=== PATIENT | female | born 1990 | race Hispanic/Latino ===

== ENCOUNTER 2020-06-07 00:18 | Emergency (ER) | payer OTHER ==
--- NOTE | 2020-06-07 00:50 | ER ---
Nurse's Notes [facility] Name: Thomas Nguyen Age: 30 yrs Sex: Female : 1990 Arrival Date: 06/07/2020 Time: 00:22 Bed Waiting Private MD: Diagnosis: Dysmenorrhea, unspecified Presentation: 06/07 00:37 Chief complaint: Patient states: Reports having bad cramps with the last couple lp1 menstrual cycles; states feeling contraction-like pain, pain to lower back radiating to pelvic area; States not all menstrual cycles are painful like this; states taking Ibuprofen for relief with no improvement. Coronavirus screen: Client denies travel out of the [place] in the last 14 days. At this time, the client does not indicate any symptoms associated with coronavirus-19. Ebola Screen: No symptoms or risks identified at this time. Risk Assessment: Do you want to hurt yourself or someone else? Patient reports no desire to harm self or others. Onset of symptoms was June 07, 2020. 00:37 Method Of Arrival: Ambulatory lp1 00:37 Acuity: CRISTY 3 lp1 00:43 Initial Sepsis Screen: Does the patient meet any 2 criteria? No. Patient's initial lp1 sepsis screen is negative. Does the patient have a suspected source of infection? No. Patient's initial sepsis screen is negative. 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 - Social history:: Smoking status: Patient denies any tobacco usage or history of. Screenin:41 Abuse screen: Denies threats or abuse. Denies injuries from another. Nutritional lp1 screening: No deficits noted. Tuberculosis screening: No symptoms or risk factors identified. Fall Risk None identified. Assessment: 00:46 Reassessment: Dr. Pineda in triage to assess patient. lp1 00:55 General: Appears in no apparent distress. Behavior is appropriate for age. Pain: lp1 Complains of pain in suprapubic area Pain currently is 7 out of 10 on a pain scale. Quality of pain is described as sharp. Neuro: Level of Consciousness is awake, alert, obeys commands, Oriented to person, place, time, situation. Cardiovascular: Patient's skin is warm and dry. Respiratory: Respiratory effort is even, unlabored. GI: Abdomen is non-distended, Bowel sounds present X 4 quads. Abd is soft and non tender X 4 quads. : Reports vaginal bleeding that is with clots, reports normal for menses. EENT: No signs and/or symptoms were reported regarding the EENT system. Derm: Skin is pink, warm \T\ dry. Musculoskeletal: No deficits noted. 01:15 Reassessment: Patient aware of need for ride for discharge, demonstrates understanding. lp1 01:44 Reassessment: Patient left prior to medication administration and discharge papers lp1 given. Vital Signs: 00:43 BP 124 / 67; Pulse 68; Resp 16; Temp 97.8(A); Pulse Ox 100% on R/A; Weight 77.11 kg lp1 (R); Height 5 ft. 7 in. (170.18 cm); Pain 7/10; 00:43 Body Mass Index 26.63 (77.11 kg, 170.18 cm) lp1 ED Course: 00:22 Patient arrived in ED. ag3 00:39 Triage completed. lp1 00:39 Arm band placed on left wrist. lp1 00:46 Patient has correct armband on for positive identification. lp1 00:49 Virgilio Pineda MD is Attending Physician. tw4 00:54 Cecilia Kebede, RN is Primary Nurse. lp1 00:58 No provider procedures requiring assistance completed. Patient did not have IV access lp1 during this emergency room visit. Administered Medications: 06:37 Not Given (Patient left prior to administration): Tylenol #3 (300 mg-30 mg) 2 tabs PO lp1 once; RASS on ADMIN: Combtv4, Very Agttd3, Agttd2, Rstlss1, AlertClm0, Drwsy-1, Lt Sdtn-2, Mod Sdtn-3, Dp Sdtn-4, UnArsble-5 Outcome: 00:50 Discharge ordered by . tw4 01:46 Discharged to Prior to given discharge instructions and prescription lp1 01:46 Condition: stable 01:47 Patient left the ED. lp1 Signatures: Cecilia Kebede RN RN lp1 Virgilio Pineda MD MD tw4 Sagrario Johns ag3 Corrections: (The following items were deleted from the chart) 00:41 00:37 Chief complaint: Patient states: Reports having bad cramps with the last couple lp1 menstrual cycles; states feeling contraction-like pain, pain to lower back radiating to pelvic area; States not all menstrual cycles are painful like this lp1
--- NOTE | 2020-06-07 00:50 | EDPHYS ---
Physician Documentation [facility] Name: Thomas Nguyen Age: 30 yrs Sex: Female : 1990 Arrival Date: 06/07/2020 Time: 00:22 Bed Waiting Private MD: ED Physician Virgilio Pineda HPI: 06/07 00:52 This 30 yrs old Female presents to ER via Ambulatory with complaints of tw4 Abdominal Pain. 00:52 The patient presents with vaginal bleeding that is moderate. The patient presents with tw4 pelvic pain, that is located in/on the suprapubic area, the pain radiates to the lumbar area, left low back and right low back. Onset: The symptoms/episode began/occurred today. Onset: The symptoms/episode began/occurred pt has been having worsening menstrual cramping over the last few months. Modifying factors: The symptoms are alleviated by nothing, the symptoms are aggravated by nothing. Associated signs and symptoms: The patient has no apparent associated signs or symptoms. Severity of symptoms: At their worst the symptoms were moderate, in the emergency department the symptoms are unchanged. The patient has experienced similar episodes in the past, chronically, but today's symptoms are worse. 00:56 Pt states that she called EMS because of increased pelvic pain secondary to menstrual tw4 cramps. 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 - Social history:: Smoking status: Patient denies any tobacco usage or history of. ROS: 00:52 Positive for pelvic pain, vaginal bleeding, Negative for injury or acute deformity, tw4 urinary symptoms, flank pain, burning with urination, difficulty urinating, bladder incontinence. 00:52 Constitutional: Negative for fever, chills, and weight loss, Eyes: Negative for injury, pain, redness, and discharge, Cardiovascular: Negative for chest pain, palpitations, and edema, Respiratory: Negative for shortness of breath, cough, wheezing, and pleuritic chest pain, Abdomen/GI: Negative for abdominal pain, nausea, vomiting, diarrhea, and constipation, Back: Negative for injury and pain, MS/Extremity: Negative for injury and deformity, Skin: Negative for injury, rash, and discoloration. Exam: 00:52 Constitutional: This is a well developed, well nourished patient who is awake, alert, tw4 and in no acute distress. Head/Face: Normocephalic, atraumatic. Chest/axilla: Normal chest wall appearance and motion. Nontender with no deformity. No lesions are appreciated. Cardiovascular: Regular rate and rhythm with a normal S1 and S2. No gallops, murmurs, or rubs. Normal PMI, no JVD. No pulse deficits. Respiratory: Lungs have equal breath sounds bilaterally, clear to auscultation and percussion. No rales, rhonchi or wheezes noted. No increased work of breathing, no retractions or nasal flaring. 00:52 Back: No spinal tenderness. No costovertebral tenderness. Full range of motion. Skin: Warm, dry with normal turgor. Normal color with no rashes, no lesions, and no evidence of cellulitis. MS/ Extremity: Pulses equal, no cyanosis. Neurovascular intact. Full, normal range of motion. 00:52 Abdomen/GI: Inspection: abdomen appears normal, Bowel sounds: normal, Palpation: moderate abdominal tenderness. Vital Signs: 00:43 BP 124 / 67; Pulse 68; Resp 16; Temp 97.8(A); Pulse Ox 100% on R/A; Weight 77.11 kg lp1 (R); Height 5 ft. 7 in. (170.18 cm); Pain 7/10; 00:43 Body Mass Index 26.63 (77.11 kg, 170.18 cm) lp1 MDM: 00:50 Patient medically screened. tw4 00:52 Differential diagnosis: dysmenorrhea, menometrorrhagia, menorrhea. Data reviewed: vital tw4 signs, nurses notes. Data interpreted: Pulse oximetry: Interpretation: normal. Counseling: I had a detailed discussion with the patient and/or guardian regarding: the historical points, exam findings, and any diagnostic results supporting the discharge/admit diagnosis. Special discussion: Based on the patient's Hx, exam, and Dx evaluation, there is no indication for emergent surgery or inpatient Tx. It is understood by the patient/guardian that if the Sx's persist or worsen they need to return immediately for re-evaluation. I discussed with the patient/guardian in detail that at this point there is no indication for admission to the hospital. It is understood, however, that if the symptoms persist or worsen the patient needs to return immediately for re-evaluation. Administered Medications: 06:37 Not Given (Patient left prior to administration): Tylenol #3 (300 mg-30 mg) 2 tabs PO lp1 once; RASS on ADMIN: Combtv4, Very Agttd3, Agttd2, Rstlss1, AlertClm0, Drwsy-1, Lt Sdtn-2, Mod Sdtn-3, Dp Sdtn-4, UnArsble-5 Disposition: 06/07/20 00:50 Discharged to Home. Impression: Dysmenorrhea, unspecified. - Condition is Stable. - Discharge Instructions: Dysmenorrhea, [id number]. - Prescriptions for Tramadol 50 mg Oral Tablet - take 1 tablet by ORAL route every 8 hours as needed; 12 tablet. - Medication Reconciliation Form, Thank You Letter, Antibiotic Education, Prescription Opioid Use form. - Follow up: Private Physician; When: Upon discharge from the Emergency Department; Reason: Recheck today's complaints, Continuance of care, Re-evaluation by your physician. - Problem is an ongoing problem. - Symptoms are unchanged. Signatures: Cecilia Kebede RN RN lp1 Virgilio Pineda MD MD tw4 Corrections: (The following items were deleted from the chart) 01:47 00:50 06/07/2020 00:50 Discharged to Home. Impression: Dysmenorrhea, unspecified. lp1 Condition is Stable. Forms are Medication Reconciliation Form, Thank You Letter, Antibiotic Education, Prescription Opioid Use. Follow up: Private Physician; When: Upon discharge from the Emergency Department; Reason: Recheck today's complaints, Continuance of care, Re-evaluation by your physician. Problem is an ongoing problem. Symptoms are unchanged. tw4
[2020-06-07 01:55] VITALS: BP 124/67; TEMP 97.8; O2SAT 100
[2020-06-07] MEDS ORDERED: CODEINE 30MG/APAP 300MG TAB ONE (01:56)
== END 2020-06-07 01:47 | disposition home or self-care (01) ==
LOC: ER 00:18
DX: N94.6 Dysmenorrhea, unspecified (principal)
CPT/HCPCS: 99281

== ENCOUNTER 2020-10-02 16:24 | Emergency (ER) | payer OTHER ==
--- OUTSIDE RECORDS SUMMARY | 2020-10-02 16:26 | XMS REPORT | Continuity of Care Document ---
:1990 Author Organization [facility] Address [address] [place] [address] Dr. Perdomo [address] [place] [id number] Care Team Providers Name Role Phone Unavailable Unavailable Unavailable Problems This patient has no known problems. Allergies, Adverse Reactions, Alerts This patient has no known allergies or adverse reactions. Medications This patient has no known medications. Procedures This patient has no known procedures. Results This patient has no known results.
[2020-10-02 17:57] LABS: Absolute Lymphocytes (CBC) 2.9 K/uL (0.7-4.9); Basophils % 0.4 % (0-1.3); Hematocrit 39.7 % (36.0-45.0); Lymphocytes % 30.1 % (15.3-44.8); RBC Red Blood Cell Count 4.98 M/uL (3.86-4.86)
[2020-10-02 18:13] LABS: Protime INR 1.02
[2020-10-02 18:24] LABS: ALT/SGPT 23 U/L (12-78); AST/SGOT 16 U/L (15-37); Albumin 4.3 g/dL (3.4-5.0); Alkaline Phosphatase 84 U/L (45-117); BUN Blood Urea Nitrogen 17 mg/dL (7-18); Bicarbonate 27 mmol/L (21-32); Bilirubin Direct < 0.1 mg/dL (0-0.2); Bilirubin Total 0.3 mg/dL (0.2-1.0); Glucose Level 90 mg/dL (74-106); Potassium 3.2 mmol/L (3.5-5.1); Protein, Total 8.7 g/dL (6.4-8.2); Sodium Level 142 mmol/L (136-145)
--- NOTE | 2020-10-02 18:57 | ER ---
Nurse's Notes [facility] Name: Thomas Nguyen Age: 30 yrs Sex: Female : 1990 Arrival Date: 10/02/2020 Time: 16:36 Bed 19 Private MD: Diagnosis: Person with feared health complaint in whom no diagnosis is made Presentation: 10/02 16:26 Chief complaint: EMS states: Family called saying that the pt. wanted to kill herself rb3 and may have possible taken drugs. PT. is A \T\ O x 4, denies wanting to hurt herself or anyone else and denies using drugs. Pt. reports that she does take Adderall for ADHD. Vital signs are stable. 16:26 Coronavirus screen: At this time, the client does not indicate any symptoms associated rb3 with coronavirus-19. Ebola Screen: Patient denies travel to an Ebola-affected area in the 21 days before illness onset. Initial Sepsis Screen: Does the patient meet any 2 criteria? No. Patient's initial sepsis screen is negative. Does the patient have a suspected source of infection? No. Patient's initial sepsis screen is negative. Risk Assessment: Do you want to hurt yourself or someone else? Patient reports no desire to harm self or others. Onset of symptoms was October 02, 2020. 16:26 Method Of Arrival: EMS: [facility] rb3 16:26 Acuity: CRISTY 3 rb3 Triage Assessment: 16:26 General: Appears in no apparent distress. comfortable, Behavior is calm, cooperative. rb3 Neuro: Level of Consciousness is awake, alert, obeys commands, Oriented to person, place, time, situation. Cardiovascular: Patient's skin is warm and dry. Respiratory: Airway is patent Respiratory effort is even, unlabored, Respiratory pattern is regular, symmetrical. GI: No signs and/or symptoms were reported involving the gastrointestinal system. : No signs and/or symptoms were reported regarding the genitourinary system. 16:26 Pain: Denies pain. 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 - Social history:: Smoking status: Patient reports the use of cigarette tobacco products, denies chronic smoking, but will smoke occasionally. Screenin:26 Abuse screen: Denies threats or abuse. Nutritional screening: No deficits noted. rb3 Tuberculosis screening: No symptoms or risk factors identified. Fall Risk None identified. Assessment: 16:26 General: See triage assessment. rb3 17:25 Reassessment: Patient appears in no apparent distress at this time. No changes from rb3 previously documented assessment. 18:22 Reassessment: Patient appears in no apparent distress at this time. Patient and/or rb3 family updated on plan of care and expected duration. Pain level reassessed. Patient is alert, oriented x 3, equal unlabored respirations, skin warm/dry/pink. Vital Signs: 16:26 BP 136 / 101; Pulse 75; Resp 20; Temp 97.5; Pulse Ox 99% ; Weight 77.11 kg (R); Height rb3 5 ft. 7 in. (170.18 cm) (R); 17:30 BP 153 / 88; Pulse 63; Resp 17; Pulse Ox 98% on R/A; rb3 18:26 BP 131 / 93; Pulse 64; Resp 16; Pulse Ox 100% on R/A; rb3 16:26 Body Mass Index 26.63 (77.11 kg, 170.18 cm) rb3 16:26 Pt. was on the telephone talking during vitals rb3 ED Course: 16:26 Arm band placed on right wrist. rb3 16:26 Patient has correct armband on for positive identification. Bed in low position. Call rb3 light in reach. Side rails up X 1. Pulse ox on. NIBP on. 16:36 Patient arrived in ED. rb3 16:49 Triage completed. rb3 16:50 Stella Fischer FNP-C is [facility]. kb 16:50 Hernán Thacker MD is Attending Physician. kb 18:21 Keyla Vilchis, VANIA is Primary Nurse. rb3 19:06 IV discontinued, intact, bleeding controlled, No redness/swelling at site. Pressure iw dressing applied. 19:06 No provider procedures requiring assistance completed. iw Administered Medications: No medications were administered Outcome: 18:56 Discharge ordered by . isadora 19:06 Discharged to home ambulatory, with family. iw 19:06 Condition: good 19:06 Discharge instructions given to patient, family, Instructed on discharge instructions, follow up and referral plans. Demonstrated understanding of instructions, follow-up care. 19:06 Patient left the ED. iw Signatures: Stella Fischer, GREIGE GOODS INSPECTOR-C IZA-Prachi Florentino, RN RN iw Keyla Vilchis, RN RN rb3
--- NOTE | 2020-10-02 18:57 | EDPHYS ---
Physician Documentation [facility] Name: Thomas Nguyen Age: 30 yrs Sex: Female : 1990 Arrival Date: 10/02/2020 Time: 16:36 Bed 19 Private MD: ED Physician Hernán Thacker HPI: 10/02 18:41 This 30 yrs old Female presents to ER via EMS with complaints of family wanted kb pt to get a mental exam. 18:41 The patient has not experienced similar symptoms in the past. The patient has not kb recently seen a physician. Pt states her family believes she is abusing her prescribed medication and doing drugs so they wanted her to get a mental health evaluation. States she is just doing what they want because it is easier that way. States she had a problem in the past with drugs, but dealt with all of that in the past. Pt denies homicidal and suicidal ideations. . 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 - Social history:: Smoking status: Patient reports the use of cigarette tobacco products, denies chronic smoking, but will smoke occasionally. ROS: 18:39 Constitutional: Negative for fever, chills, and weight loss, Cardiovascular: Negative kb for chest pain, palpitations, and edema, Respiratory: Negative for shortness of breath, cough, wheezing, and pleuritic chest pain, Abdomen/GI: Negative for abdominal pain, nausea, vomiting, diarrhea, and constipation, MS/Extremity: Negative for injury and deformity, Skin: Negative for injury, rash, and discoloration, Neuro: Negative for headache, weakness, numbness, tingling, and seizure. Exam: 18:39 Constitutional: This is a well developed, well nourished patient who is awake, alert, kb and in no acute distress. Head/Face: Normocephalic, atraumatic. Chest/axilla: Normal chest wall appearance and motion. Cardiovascular: Regular rate and rhythm with a normal S1 and S2. No gallops, murmurs, or rubs. No pulse deficits. Respiratory: Lungs have equal breath sounds bilaterally, clear to auscultation. No rales, rhonchi or wheezes noted. No increased work of breathing, no retractions or nasal flaring. Abdomen/GI: Soft, non-tender, with normal bowel sounds. No distension. No guarding or rebound. No evidence of tenderness throughout. Skin: Warm, dry with normal turgor. Normal color with no rashes, no lesions, and no evidence of cellulitis. MS/ Extremity: Pulses equal, no cyanosis. Neurovascular intact. Full, normal range of motion. Neuro: Awake and alert, GCS 15, oriented to person, place, time, and situation. Cranial nerves II-XII grossly intact. Moves all extremities. Sensory grossly intact. Cerebellar exam normal. Normal gait. 18:40 Psych: Behavior/mood is pleasant, cooperative, Affect is calm, Oriented to person, kb place, time, Patient has no thoughts/intents to harm self or others. Judgement / Insight is normal. Memory is normal. Delusions/hallucinations are not present. Vital Signs: 16:26 BP 136 / 101; Pulse 75; Resp 20; Temp 97.5; Pulse Ox 99% ; Weight 77.11 kg (R); Height rb3 5 ft. 7 in. (170.18 cm) (R); 17:30 BP 153 / 88; Pulse 63; Resp 17; Pulse Ox 98% on R/A; rb3 18:26 BP 131 / 93; Pulse 64; Resp 16; Pulse Ox 100% on R/A; rb3 16:26 Body Mass Index 26.63 (77.11 kg, 170.18 cm) rb3 16:26 Pt. was on the telephone talking during vitals rb3 MDM: 16:50 Patient medically screened. kb 18:40 Data reviewed: vital signs, nurses notes. Data interpreted: Pulse oximetry: on room air kb is 100 %. Interpretation: normal. Counseling: I had a detailed discussion with the patient and/or guardian regarding: the historical points, exam findings, and any diagnostic results supporting the discharge/admit diagnosis, lab results, the need for outpatient follow up, a family practitioner, to return to the emergency department if symptoms worsen or persist or if there are any questions or concerns that arise at home. 18:56 ED course: Pt continues to deny homicidal or suicidal ideations. Pt will call [facility] on Sunday for follow up. 10/02 16:50 Order name: Acetaminophen 10/02 16:50 Order name: Basic Metabolic Panel 10/02 16:50 Order name: CBC with Diff 10/02 16:50 Order name: ETOH Level 10/02 16:50 Order name: Hepatic Function 10/02 16:50 Order name: PT-INR; Complete Time: 18:25 kb 10/02 16:50 Order name: Ptt, Activated; Complete Time: 18:25 kb 10/02 16:50 Order name: Salicylate; Complete Time: 18:25 kb 10/02 16:51 Order name: Acetaminophen Level; Complete Time: 18:31 EDMS 10/02 16:51 Order name: Basic Metabolic Panel; Complete Time: 18:31 EDMS 10/02 16:51 Order name: CBC with Automated Diff; Complete Time: 18:25 EDMS 10/02 16:52 Order name: Alcohol Serum/Plasma; Complete Time: 18:25 EDMS 10/02 16:52 Order name: Liver (Hepatic) Function; Complete Time: 18:31 EDMS 10/02 16:50 Order name: EKG; Complete Time: 16:52 kb 10/02 16:50 Order name: EKG - Nurse/Tech 10/02 16:50 Order name: IV Saline Lock; Complete Time: 18:24 kb 10/02 16:50 Order name: Labs collected and sent; Complete Time: 18:24 kb Administered Medications: No medications were administered Disposition: 10/03 09:05 Co-signature as Attending Physician, Hernán Thacker MD I agree with the assessment and nimo plan of care. Disposition: 10/02/20 18:56 Discharged to Home. Impression: Person with feared health complaint in whom no diagnosis is made. - Condition is Stable. - Medication Reconciliation Form, Thank You Letter, Antibiotic Education, Prescription Opioid Use form. - Follow up: Emergency Department; When: As needed; Reason: Worsening of condition. Follow up: Private Physician; When: 2 - 3 days; Reason: Recheck today's complaints, Continuance of care, Re-evaluation by your physician. Signatures: Dispatcher [employer] Stella Askew FNP-C FNP-Ckb Anderson, Corey, MD MD nimo Ilya, Prachi, RN RN iw Keyla Vilchis, RN RN rb3 Corrections: (The following items were deleted from the chart) 10/02 19:06 18:56 10/02/2020 18:56 Discharged to Home. Impression: Person with feared health iw complaint in whom no diagnosis is made. Condition is Stable. Forms are Medication Reconciliation Form, Thank You Letter, Antibiotic Education, Prescription Opioid Use. Follow up: Emergency Department; When: As needed; Reason: Worsening of condition. Follow up: Private Physician; When: 2 - 3 days; Reason: Recheck today's complaints, Continuance of care, Re-evaluation by your physician. kb
[2020-10-02 19:12] VITALS: TEMP 97.5
[2020-10-02 19:21] VITALS: BP 131/93; O2SAT 100
== END 2020-10-02 19:06 | disposition home or self-care (01) ==
LOC: ER 16:24
DX: Z71.1 Person with feared health complaint in whom no diagnosis is made (principal); F90.9 Attention-deficit hyperactivity disorder, unspecified type; F17.210 Nicotine dependence, cigarettes, uncomplicated
CPT/HCPCS: 36415; 80048; 80076; 80320; 80329; 85025; 85610; 85730; 99283

== ENCOUNTER 2021-08-29 14:59 | Emergency (ER) | payer OTHER ==
--- OUTSIDE RECORDS SUMMARY | 2021-08-29 15:01 | XMS REPORT | Continuity of Care Document ---
:1990 Author Organization [facility] Address [address]dom[address] [place] [address] Care Team Providers Name Role Phone UNKNOWN Attending Clinician Unavailable Payers Payer Name Policy Type Policy Number Effective Date Expiration Date [facility] [id number] 2015 00:00:00 Problems This patient has no known problems. Allergies, Adverse Reactions, Alerts Allergy Allergy Status Severity Reaction(s) Onset Inactive Treating Comm ents Source Name Type Date Date Clinician NO KNOWN Drug Active [facility] Medications This patient has no known medications. Procedures This patient has no known procedures. Encounters Start End Encounter Admission Attending Care Care Encounter Source Date/Time Date/Time Type Type Clinicians Facility Department ID 2020-07-07 2020-07-07 Outpatient R UNKNOWN, [facility] [id number] [employer] 15:20:00 15:20:00 ATTENDING [facility] Results This patient has no known results.
[2021-08-29 17:17] LABS: SARS-COV-2 RT PCR POSITIVE (NEGATIVE)
--- NOTE | 2021-08-29 17:18 | ER ---
Nurse's Notes [facility] Name: Thomas Nguyen Age: 31 yrs Sex: Female : 1990 Arrival Date: 08/29/2021 Time: 15:01 Bed 9 Private MD: Diagnosis: Coronavirus infection, unspecified Presentation: 08/29 15:47 Chief complaint: Patient states: pt states that she was exposed to covid last week and jh6 that she has been having sob x 2-3wks. Coronavirus screen: Client denies travel out of the [place] in the last 14 days. Ebola Screen: Patient denies travel to an Ebola-affected area in the 21 days before illness onset. Initial Sepsis Screen: Does the patient meet any 2 criteria? No. Patient's initial sepsis screen is negative. Does the patient have a suspected source of infection? No. Patient's initial sepsis screen is negative. Risk Assessment: Do you want to hurt yourself or someone else? Patient reports no desire to harm self or others. 15:47 Method Of Arrival: Ambulatory [facility] 15:47 Acuity: CRISTY 4 [facility] Triage Assessment: 15:50 General: Appears in no apparent distress. Pain: Denies pain. Cardiovascular: No [facility] deficits noted. 17:23 General: Behavior is calm, cooperative, appropriate for age. Neuro: Level of ld1 Consciousness is awake, alert, obeys commands, Oriented to person, place, time, situation. Respiratory: Airway is patent Respiratory effort is even, unlabored, Respiratory pattern is regular, symmetrical. 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 - Social history:: Smoking status: Patient reports the use of cigarette tobacco products. Screenin:22 Abuse screen: Denies threats or abuse. Denies injuries from another. Nutritional ld1 screening: No deficits noted. Tuberculosis screening: No symptoms or risk factors identified. Fall Risk None identified. Vital Signs: 15:47 BP 145 / 82; Pulse 84; Resp 20; Temp 98.4; Pulse Ox 100% ; Weight 83.46 kg; Height 5 [facility] ft. 4 in. (162.56 cm); Pain 0/10; 15:47 Body Mass Index 31.58 (83.46 kg, 162.56 cm) [facility] ED Course: 15:01 Patient arrived in ED. as 15:49 Triage completed. [facility] 15:50 Stella Fischer FNP-C is [facility]. kb 15:50 Catrachito Ordaz MD is Attending Physician. kb 16:09 COVID-19/FLU A+B (Document "Date of Onset" if Symptomatic) Sent. [facility] 16:09 COVID swab sent to lab. [facility] 17:22 No provider procedures requiring assistance completed. Patient did not have IV access ld1 during this emergency room visit. Patient maintains SpO2 saturation greater than 95% on room air. 17:22 Patient has correct armband on for positive identification. classroom monitor on. Pulse ld1 ox on. NIBP on. Door closed. Noise minimized. Warm blanket given. 17:23 Arm band placed on right wrist. ld1 Administered Medications: No medications were administered Outcome: 15:25 Patient left the ED. [facility] 17:18 Discharge ordered by . kb 17:22 Discharged to home ambulatory. ld1 17:22 Condition: stable 17:22 Discharge instructions given to patient, Instructed on discharge instructions, follow up and referral plans. Demonstrated understanding of instructions, follow-up care. 17:23 Patient left the ED. ld1 Signatures: Stella Fischer FNP-C FNP-Ckb Martinez, Amelia as Martinez, Maria [facility] Marilee Gorman RN RN 1 Lauren Smith RN RN [facility]
--- NOTE | 2021-08-29 17:19 | EDPHYS ---
Physician Documentation [facility] Name: Thomas Nguyen Age: 31 yrs Sex: Female : 1990 Arrival Date: 08/29/2021 Time: 15:01 Bed 9 Private MD: ED Physician Catrachito Ordaz HPI: 08/29 15:58 This 31 yrs old Female presents to ER via Ambulatory with complaints of Chest kb Pain, Shortness Of Breath. 15:58 The patient or guardian reports cough, that is intermittent, difficulty breathing. kb Onset: The symptoms/episode began/occurred 2 week(s) ago, and became worse 3 day(s) ago. Severity of symptoms: At their worst the symptoms were moderate, in the emergency department the symptoms are unchanged. Modifying factors: The symptoms are alleviated by nothing, the symptoms are aggravated by nothing. Associated signs and symptoms: Pertinent positives: chest pain, Pertinent negatives: diarrhea, ear ache, fever, nausea, rhinorrhea, sore throat, vomiting. The patient has not experienced similar symptoms in the past. The patient has not recently seen a physician. 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 - Social history:: Smoking status: Patient reports the use of cigarette tobacco products. ROS: 15:57 Constitutional: Negative for fever, chills, and weight loss. kb 15:57 Cardiovascular: Positive for chest pain, Negative for edema, orthopnea, palpitations, paroxysmal nocturnal dyspnea. 15:57 Respiratory: Positive for cough, shortness of breath, Negative for dyspnea on exertion, hemoptysis, orthopnea, pleurisy, sputum production, wheezing. 15:57 All other systems are negative. Exam: 15:57 Constitutional: This is a well developed, well nourished patient who is awake, alert, kb and in no acute distress. Head/Face: Normocephalic, atraumatic. ENT: Moist Mucous membranes Cardiovascular: Regular rate and rhythm with a normal S1 and S2. No gallops, murmurs, or rubs. No pulse deficits. Respiratory: Respirations even and unlabored. No increased work of breathing. Talking in full sentences Skin: Warm, dry with normal turgor. Normal color. MS/ Extremity: Pulses equal, no cyanosis. Neurovascular intact. Full, normal range of motion. Neuro: Awake and alert, GCS 15, oriented to person, place, time, and situation. Moves all extremities. Normal gait. Psych: Awake, alert, with orientation to person, place and time. Behavior, mood, and affect are within normal limits. Vital Signs: 15:47 BP 145 / 82; Pulse 84; Resp 20; Temp 98.4; Pulse Ox 100% ; Weight 83.46 kg; Height 5 jh6 ft. 4 in. (162.56 cm); Pain 0/10; 15:47 Body Mass Index 31.58 (83.46 kg, 162.56 cm) jh6 MDM: 15:50 Patient medically screened. kb 15:57 Data reviewed: vital signs, nurses notes. Data interpreted: Pulse oximetry: on room air kb is 100 %. Interpretation: normal. 17:17 Counseling: I had a detailed discussion with the patient and/or guardian regarding: the kb historical points, exam findings, and any diagnostic results supporting the discharge/admit diagnosis, lab results, the need for outpatient follow up, a family practitioner, to return to the emergency department if symptoms worsen or persist or if there are any questions or concerns that arise at home. 08/29 15:50 Order name: COVID-19/FLU A+B (Document "Date of Onset" if Symptomatic); Complete Time: kb 17:18 Administered Medications: No medications were administered Disposition: 17:49 Co-signature as Attending Physician, Catrachito Ordaz MD. rn Disposition Summary: 08/29/21 17:18 Discharge Ordered Location: Home kb Condition: Stable kb Diagnosis - Coronavirus infection, unspecified kb Followup: kb - With: Emergency Department - When: As needed - Reason: Worsening of condition Followup: kb - With: Private Physician - When: 2 - 3 days - Reason: Recheck today's complaints, Continuance of care, Re-evaluation by your physician Discharge Instructions: - Discharge Summary Sheet kb - Viral Respiratory Infection, [id number] kb - COVID-19 kb Forms: - Medication Reconciliation Form kb - Thank You Letter kb - Antibiotic Education kb - Prescription Opioid Use kb Signatures: Dispatcher [employer] Stella Askew, VISUAL INSPECTOR-C VISUAL INSPECTOR-Ckb Catrachito Ordaz MD MD rn Hastedt, Jennifer, RN RN 6 Corrections: (The following items were deleted from the chart) 15:25 before being seen by provider [facility] 15:25 unknown [facility]
[2021-08-29 17:38] VITALS: BP 145/82; TEMP 98.4; O2SAT 100
== END 2021-08-29 17:23 | disposition home or self-care (01) ==
LOC: ER 14:59
DX: U07.1 COVID-19 (principal); F90.9 Attention-deficit hyperactivity disorder, unspecified type; F17.210 Nicotine dependence, cigarettes, uncomplicated
CPT/HCPCS: 0240U; 99284

== ENCOUNTER 2022-05-29 15:09 | Emergency (ER) | payer OTHER ==
--- OUTSIDE RECORDS SUMMARY | 2022-05-29 15:13 | XMS REPORT | Continuity of Care Document ---
:1990 Author Organization [facility] t Address [address] [place] [address] Care Team Providers Name Role Phone Vanna Zaidi Primary Care Physician [phone] PMG_GWUC_Porter_F Attending Clinician Unavailable UNKNOWN, ATTENDING Attending Clinician Unavailable Estela Herrmann Attending Clinician PMG_GWUC_Porter_F Admitting Clinician Unavailable Payers Payer Name Policy Type Policy Number Effective Date Expiration Date S ource [employer] [id number] - MOVED [facility] [id number] 2015 00:00:00 Problems Condition Condition Condition Status Onset Resolution Last Treating Co mments Source Name Details Category Date Date Treatment Clinician Date No past No past Problem Resolve 2017-12-10 M emoria history of history of d 12:28:40 l procedure procedure Herm robert (context-d (context-d ependent ependent category) category) Resolved Problem 12/10/2017 [facility] Morbid Morbid Problem Active 2017-12-10 Melchor colmenares obesity obesity 12:28:40 l (disorder) (disorder) Parminder rmrobert Active Problem 12/10/2017 [facility] Group Allergies, Adverse Reactions, Alerts Allergy Allergy Status Severity Reaction(s) Onset Inactive Treating Comm ents Source Name Type Date Date Clinician NO KNOWN Drug Active Univers ALLERGIE Class ity [facility] Social History Social Habit Start Date Stop Date Quantity Comments Source Social History 2017-09-03 2017-09-03 Zee jimenez 16:29:04 16:29:04 Medications Ordered Filled Start Stop Current Ordering Indication Dosage Frequency Signature Comments Components Source Medication Medication Date Date Medication? Clinician (SIG) Name Name MIRTAZAPINE 2022-1 No 15MG TAB 0-01 00:00: 00 trazodone 2022-0 No 51mg 50 mg 4-01 tablet 00:00: 00 Dose 2022-0 No Unknown 4-01 00:00: 00 Wellbutrin 2022-0 No 1mg XL 150 mg 4-01 24 hr 00:00: tablet, 00 extended release Intuniv ER 2022-0 No 1mg 3 mg 4-01 tablet,exte 00:00: nded 00 release Dose 2022-0 No Unknown 3-17 00:00: 00 Intuniv ER 2022-0 No 1mg 3 mg 3-17 tablet,exte 00:00: nded 00 release Wellbutrin 2-0 No 1mg XL 150 mg 3-17 24 hr 00:00: tablet, 00 extended release Dose 2-0 No Unknown 3-17 00:00: 00 Dose 2022-0 No Unknown 3-17 00:00: 00 Dose 2022-0 No Unknown 3-17 00:00: 00 Dose 2022-0 No Unknown 3-17 00:00: 00 Wellbutrin 2-0 No 1mg XL 150 mg 2-16 24 hr 00:00: tablet, 00 extended release Intuniv ER 2-0 No 1mg 3 mg 2-16 tablet,exte 00:00: nded 00 release Dose 2-0 No Unknown 2-16 00:00: 00 ProAir HFA 2-0 No 12mcg/a 90 2-01 ctuatio mcg/actuati 00:00: n on aerosol 00 inhaler Lamictal 25 2-0 No 1mg mg tablet 1-28 00:00: 00 Dose 2022-0 No Unknown 1-28 00:00: 00 Intuniv ER 2-0 No 1mg 2 mg 1-28 tablet,exte 00:00: nded 00 release Intuniv ER 2-0 No 1mg 2 mg 1-28 tablet,exte 00:00: nded 00 release amoxicillin 2020-0 No 1mg 500 mg 3-19 tablet 00:00: 00 amoxicillin 2020-0 No 1mg 500 mg 3-19 tablet 00:00: 00 Cipro 250 2020-0 No 1mg mg tablet 2-04 00:00: 00 metronidazo 2019-0 No 1mg le 500 mg 7-12 tablet 00:00: 00 bupropion No 1mg HCl SR 150 7-08 mg 00:00: tablet,12 00 hr sustained-r elease metronidazo 2017-07 No 1mg le 500 mg 0-01 tablet 00:00: 00 amoxicillin 2017-07 No 1mg 875 0-01 mg-potassiu 00:00: m 00 clavulanate 125 mg tablet nitrofurant No 1mg oin 9-21 monohydrate 00:00: /macrocryst 00 als 100 mg capsule cephalexin No 1mg 500 mg 9-18 capsule 00:00: 00 Immunizations Ordered Immunization Filled Immunization Date Status Commen ts Source Name Name Hep A, adult 2018-04-25 Completed 00:00:00 Hep B, adult 2018-04-25 Completed 00:00:00 Vital Signs Vital Name Observation Time Observation Value Comments Source BP Systolic 2021-09-05 14:03:00 BP Diastolic 2021-09-05 14:03:00 Weight Measured 2021-09-05 14:03:00 185.00 pounds Height Measured 2021-09-05 14:03:00 67.00 inches Body Temperature 2021-09-05 14:03:00 Heart Rate 2021-09-05 14:03:00 Respiratory Rate 2021-09-05 14:03:00 BP Systolic 2021-08-26 08:23:00 144 mm[Hg] BP Diastolic 2021-08-26 08:23:00 89 mm[Hg] Weight Measured 2021-08-26 08:23:00 185.40 pounds Height Measured 2021-08-26 08:23:00 67.25 inches Body Temperature 2021-08-26 08:23:00 98.30 degrees Heart Rate 2021-08-26 08:23:00 90.00 /min Respiratory Rate 2021-08-26 08:23:00 18.00 /min Height Measured 2019-10-16 16:52:00 67.50 inches Body Temperature 2019-10-16 16:52:00 99.30 degrees Heart Rate 2019-10-16 16:52:00 91.00 /min Respiratory Rate 2019-10-16 16:52:00 16.00 /min BP Systolic 2019-10-16 16:52:00 123 mm[Hg] BP Diastolic 2019-10-16 16:52:00 73 mm[Hg] Weight Measured 2019-10-16 16:52:00 190.60 pounds BP Systolic 2019-08-29 17:03:00 129 mm[Hg] BP Diastolic 2019-08-29 17:03:00 78 mm[Hg] Weight Measured 2019-08-29 17:03:00 208.20 pounds Height Measured 2019-08-29 17:03:00 67.50 inches Body Temperature 2019-08-29 17:03:00 98.10 degrees Heart Rate 2019-08-29 17:03:00 77.00 /min Respiratory Rate 2019-08-29 17:03:00 16.00 /min BP Systolic 2019-03-14 16:15:00 128 mm[Hg] BP Diastolic 2019-03-14 16:15:00 76 mm[Hg] Weight Measured 2019-03-14 16:15:00 249.20 pounds Height Measured 2019-03-14 16:15:00 67.50 inches Body Temperature 2019-03-14 16:15:00 98.40 degrees Heart Rate 2019-03-14 16:15:00 87.00 /min Respiratory Rate 2019-03-14 16:15:00 16.00 /min BP Systolic 2019-02-03 13:40:00 132 mm[Hg] BP Diastolic 2019-02-03 13:40:00 78 mm[Hg] Weight Measured 2019-02-03 13:40:00 247.60 pounds Height Measured 2019-02-03 13:40:00 67.50 inches Body Temperature 2019-02-03 13:40:00 98.70 degrees Heart Rate 2019-02-03 13:40:00 90.00 /min Respiratory Rate 2019-02-03 13:40:00 17.00 /min BP Systolic 2018-04-25 10:34:00 115 mm[Hg] BP Diastolic 2018-04-25 10:34:00 77 mm[Hg] Weight Measured 2018-04-25 10:34:00 239.40 pounds Height Measured 2018-04-25 10:34:00 67.50 inches Body Temperature 2018-04-25 10:34:00 98.90 degrees Heart Rate 2018-04-25 10:34:00 77.00 /min Respiratory Rate 2018-04-25 10:34:00 16.00 /min BP Systolic 2018-04-16 10:12:00 124 mm[Hg] BP Diastolic 2018-04-16 10:12:00 79 mm[Hg] Weight Measured 2018-04-16 10:12:00 240.40 pounds Height Measured 2018-04-16 10:12:00 67.50 inches Body Temperature 2018-04-16 10:12:00 98.10 degrees Heart Rate 2018-04-16 10:12:00 81.00 /min Respiratory Rate 2018-04-16 10:12:00 16.00 /min Weight 2017-09-03 16:28:00 [facility] Systolic (mm Hg) 2017-09-03 16:28:00 Melchor maurer Mohit Diastolic (mm Hg) 2017-09-03 16:28:00 Mem larisa Mohit Heart [facility] 2017-09-03 [facility] 2017-09-03 16:28:00 Memcarlos al Mohit Height 2017-09-03 16:28:00 170.18 cm [facility] BP Systolic 2016-01-18 15:31:00 123 mm[Hg] BP Diastolic 2016-01-18 15:31:00 75 mm[Hg] Weight Measured 2016-01-18 15:31:00 225.40 pounds Height Measured 2016-01-18 15:31:00 67.50 inches Body Temperature 2016-01-18 15:31:00 98.20 degrees Heart Rate 2016-01-18 15:31:00 78.00 /min Respiratory Rate 2016-01-18 15:31:00 BP Systolic 2016-01-17 11:13:00 122 mm[Hg] BP Diastolic 2016-01-17 11:13:00 76 mm[Hg] Weight Measured 2016-01-17 11:13:00 223.00 pounds Height Measured 2016-01-17 11:13:00 67.50 inches Body Temperature 2016-01-17 11:13:00 97.80 degrees Heart Rate 2016-01-17 11:13:00 74.00 /min Respiratory Rate 2016-01-17 11:13:00 Procedures This patient has no known procedures. Plan of Care Planned Activity Planned Date Details Comments Source Goal Plan of Care Note [code = 54420-2] Goal Plan of Care Note [code = 98021-1] Goal Plan of Care Note [code = 81489-1] Goal Plan of Care Note [code = 19662-7] Goal Plan of Care Note [code = 13362-9] Goal Plan of Care Note [code = 35854-1] Goal Plan of Care Note [code = 06940-4] Goal Plan of Care Note [code = 64306-7] Goal Plan of Care Note [code = 06352-2] Goal Plan of Care Note [code = 12661-7] Goal Plan of Care Note [code = 72536-9] Goal Plan of Care Note [code = 60079-9] Goal Plan of Care Note [code = 32083-0] Goal Plan of Care Note [code = 91031-7] Goal Plan of Care Note [code = 50543-0] Goal Plan of Care Note [code = 25007-0] Goal Plan of Care Note [code = 60260-2] Goal Plan of Care Note [code = 70434-6] Goal Plan of Care Note [code = 03914-7] Goal Plan of Care Note [code = 69822-7] Goal Plan of Care Note [code = 03608-3] Goal Plan of Care Note [code = 79713-2] Goal Plan of Care Note [code = 25832-9] Goal Plan of Care Note [code = 69343-3] Goal Plan of Care Note [code = 45430-0] Goal Plan of Care Note [code = 52371-2] Goal Plan of Care Note [code = 20403-7] Goal Plan of Care Note [code = 12353-0] Goal Plan of Care Note [code = 15246-9] Goal Plan of Care Note [code = 13627-2] Goal Plan of Care Note [code = 05381-6] Goal Plan of Care Note [code = 79641-1] Goal Plan of Care Note [code = 73221-1] Goal Plan of Care Note [code = 04417-8] Encounters Start End Encounter Admission Attending Care Care Encounter Source Date/Time Date/Time Type Type Clinicians Facility Department ID 2022-04-29 2022-04-29 Outpatient [id number] 00:00:00 00:00:00 Visit [id number] 2021-05-08 2021-05-08 Outpatient PMG_GWUC_Po PRIV PRIV [id number] [facility] 00:00:00 00:00:00 rter_F [id number] Medica l 2020-07-07 2020-07-07 Outpatient R UNKNOWN, 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 [id number] Memoria 16:30:00 05:59:59 r Corbett 00 melody Reuda 2017-09-03 2017-09-03 Outpatient Montez, [facility] [id number] 10:30:00 23:59:59 Estela 00 Rafa 2017-09-03 2017-09-03 Outpatient [facility] [id number] Memoria 10:30:00 10:30:00 00 melody Rueda Results Test Description Test Time Test Comments Results Result Comments Source SARS-CoV-2 (COVID-19), RT-PCR/TMA 2021-10-22 08:08:41 Test Item Value Reference Range Interpretation Comme nts SARS-CoV-2 INTERPRETATION NEGATIVE SEE NOTE S ARS-CoV-2 RNA NOT (test code = 40886) DETECTED Negative results do not preclude SARS-C oV-2 infection and should notbe us ed as the sole basis for patie nt management decisions. Nega tiveresults must be combined wit h clinical observations, p atient history,and epidemiological information. Optimum specime n types and timingfor peak viral levels during infectio ns caused by SARS-CoV-2 have notbeen determined. Col lection of multiple specim ens or types ofspecimens may be necessary to detect virus. I mproper specimencollect ion and handling, sequence variab ility under primers/probes, or organism present below t he limit of detection may l ead to falsenegative r esults. Positive and negative pr edictive values oftesting are h ighly dependent on prevalence. Fal se negative testresults are more likely when prevalence is h igh. EFFECTIVE 10/10/2021, SPU MARCOS SPECIMENS CAN NO LONGER BE TE STED WITHTHIS ORDER CODE. FOR SALIVA, ORAL FLUID TESTING A ND SPECIMENREQUIRE MENTS, PLEASE REFER TO ORDER CODE 3509. SOURCE (test code = 44164) NOT SPECIFIED Note: Methodology is Patrick Juan Real-Time RT-PC R. The expected result or refer ence range is NEGATIVE (Not D etected). For more information reg arding COVID-19 testing to incl ude clinicalinforma tion, methodology detail, intende d use, FDA authorization a ndrecommended fact sheets for skip ents or healthcare providers, see [employer] Announcement: S ARS-CoV-2 (COVID-19) by N AAT at URL below (note,fact shee ts are provided by method given in report:https:// [email or web address] [email or web address] -communications/ Alternatively, see downloadable PDF fact sheet at:https://www. [employer]/COVID- 19-RT-PCR UNLES S OTHERWISE INDICATED, ALL TESTING PERFORMED [facility], [place] [address] 4 COMMUNITY ASSISTANT: BRAD ARGUETA M.D. CLIA NUMBER [id number] CAP ACCREDITATION N O. [id number] SARS-CoV-2 (COVID-19) by RT-PCR (HIGH RISK)2021-10-22 00:00:00 Test Item Value Reference Range Interpretation Comments SARS-CoV-2 INTERPRETATION (test NEGATIVE code = 86100) SOURCE (test code = 67115) NOT SPECIFIED SARS-CoV-2 (COVID-19) by RT-PCR (HIGH RISK)2021-10-22 00:00:00 Test Item Value Reference Range Interpretation Comments SARS-CoV-2 INTERPRETATION (test NEGATIVE code = 89503) SOURCE (test code = 04966) NOT SPECIFIED CULTURE, [id number] 00:00:00 Test Item Value Reference Range Interpretation Comments CULTURE, URINE (test SPECIMEN NUMBER: code = 02934) [id number] CULTURE, [id number] 00:00:00 Test Item Value Reference Range Interpretation Comments CULTURE, URINE (test SPECIMEN NUMBER: code = 02067) [id number] CBC W/AUTO [id number] 00:00:00 Test Item Value Reference Range Interpretation Comments WBC (test code = 1001) 9.5 K/UL RBC (test code = 1002) 4.05 M/UL HEMOGLOBIN (test code = 1003) 10.0 G/DL HEMATOCRIT (test code = 1004) 31.0 % MCV (test code = 1005) 76.5 fL MCH (test code = 1006) 24.7 PG MCHC (test code = 1007) 32.3 G/DL RDW (test code = 1038) 14.2 % NEUTROPHILS (test code = 1008) 63.5 % LYMPHOCYTES (test code = 1010) 27.3 % MONOCYTES (test code = 1011) 6.2 % EOSINOPHILS (test code = 1012) 2.8 % BASOPHILS (test code = 1013) 0.2 % PLATELET COUNT (test code = 1015) 352 K/UL CBC W/AUTO [id number] 00:00:00 Test Item Value Reference Range Interpretation Comments WBC (test code = 1001) 9.5 K/UL RBC (test code = 1002) 4.05 M/UL HEMOGLOBIN (test code = 1003) 10.0 G/DL HEMATOCRIT (test code = 1004) 31.0 % MCV (test code = 1005) 76.5 fL MCH (test code = 1006) 24.7 PG MCHC (test code = 1007) 32.3 G/DL RDW (test code = 1038) 14.2 % NEUTROPHILS (test code = 1008) 63.5 % LYMPHOCYTES (test code = 1010) 27.3 % MONOCYTES (test code = 1011) 6.2 % EOSINOPHILS (test code = 1012) 2.8 % BASOPHILS (test code = 1013) 0.2 % PLATELET COUNT (test code = 1015) 352 K/UL CBC W/AUTO [id number] 00:00:00 Test Item Value Reference Range Interpretation Comments WBC (test code = 1001) 9.5 K/UL RBC (test code = 1002) 4.05 M/UL HEMOGLOBIN (test code = 1003) 10.0 G/DL HEMATOCRIT (test code = 1004) 31.0 % MCV (test code = 1005) 76.5 fL MCH (test code = 1006) 24.7 PG MCHC (test code = 1007) 32.3 G/DL RDW (test code = 1038) 14.2 % NEUTROPHILS (test code = 1008) 63.5 % LYMPHOCYTES (test code = 1010) 27.3 % MONOCYTES (test code = 1011) 6.2 % EOSINOPHILS (test code = 1012) 2.8 % BASOPHILS (test code = 1013) 0.2 % PLATELET COUNT (test code = 1015) 352 K/UL [id number] 00:00:00 Test Item Value Reference Range Interpretation Comments TSH, THIRD GENERATION (test code 2.460 UIU/ML = 2821) [id number] 00:00:00 Test Item Value Reference Range Interpretation Comments TSH, THIRD GENERATION (test code 2.460 UIU/ML = 2821) [id number] 00:00:00 Test Item Value Reference Range Interpretation Comments TSH, THIRD GENERATION (test code 2.460 UIU/ML = 2821) VAGINAL PATHOGENS DNA [id number] 00:00:00 Test Item Value Reference Range Interpretation Comments VALERIA SPECIES (test code = ) NEGATIVE G. VAGINALIS (test code = 64363) POSITIVE T. VAGINALIS (test code = 86314) NEGATIVE VAGINAL PATHOGENS DNA [id number] 00:00:00 Test Item Value Reference Range Interpretation Comments VALERIA SPECIES (test code = 01573) NEGATIVE G. VAGINALIS (test code = 08207) POSITIVE T. VAGINALIS (test code = 40645) NEGATIVE HCV RNA, PCR [id number] 00:00:00 Test Item Value Reference Range Interpretation Comments HCV RNA, PCR QUANT (test NOT DETEC IU/ML code = 4571) HCV VIRAL LOG (test code = NOT DETEC LOGIU/ML 97400) HCV RNA, PCR [id number] 00:00:00 Test Item Value Reference Range Interpretation Comments HCV RNA, PCR QUANT (test NOT DETEC IU/ML code = 4571) HCV VIRAL LOG (test code = NOT DETEC LOGIU/ML 52020) HCV RNA, PCR [id number] 00:00:00 Test Item Value Reference Range Interpretation Comments HCV RNA, PCR QUANT (test NOT DETEC IU/ML code = 4571) HCV VIRAL LOG (test code = NOT DETEC LOGIU/ML 58535) CULTURE, [id number] 00:00:00 Test Item Value Reference Range Interpretation Comments CULTURE, URINE (test SPECIMEN NUMBER: code = 36602) [id number] CULTURE, [id number] 00:00:00 Test Item Value Reference Range Interpretation Comments CULTURE, URINE (test SPECIMEN NUMBER: code = 58804) [id number] LIPID [id number] 00:00:00 Test Item Value Reference Range Interpretation Comments CHOLESTEROL (test code = 2210) 175 MG/DL TRIGLYCERIDES (test code = 2232) 254 MG/DL HDL CHOLESTEROL (test code = 2220) 42 MG/DL CALC LDL CHOL (test code = 2237) 82 MG/DL RISK RATIO LDL/HDL (test code = 1.96 RATIO 2238) LIPID [id number] 00:00:00 Test Item Value Reference Range Interpretation Comments CHOLESTEROL (test code = 2210) 175 MG/DL TRIGLYCERIDES (test code = 2232) 254 MG/DL HDL CHOLESTEROL (test code = 2220) 42 MG/DL CALC LDL CHOL (test code = 2237) 82 MG/DL RISK RATIO LDL/HDL (test code = 1.96 RATIO 2238) VAGINAL PATHOGENS DNA [id number] 00:00:00 Test Item Value Reference Range Interpretation Comments VALERIA SPECIES (test code = ) NEGATIVE G. VAGINALIS (test code = 13060) POSITIVE T. VAGINALIS (test code = 68843) NEGATIVE VAGINAL PATHOGENS DNA [id number] 00:00:00 Test Item Value Reference Range Interpretation Comments VALERIA SPECIES (test code = ) NEGATIVE G. VAGINALIS (test code = 71082) POSITIVE T. VAGINALIS (test code = 94640) NEGATIVE COMPREHENSIVE METABOLIC PANEL [ADDED]2018-04-26 00:00:00 Test Item Value Reference Range Interpretation Comments GLUCOSE (test code = 2217) 76 MG/DL BUN (test code = 2208) 10 MG/DL CREATININE (test code = 2214) 0.54 MG/DL eGFR AMER. (test code 150 ML/MIN/1.73 = 31991) eGFR NON- AMER. (test 129 ML/MIN/1.73 code = 92503) CALC BUN/CREAT (test code = 19 RATIO 2235) SODIUM (test code = 2231) 141 MEQ/L POTASSIUM (test code = 2228) 4.1 MEQ/L CHLORIDE (test code = 2215) 103 MEQ/L CARBON DIOXIDE (test code = 25 MEQ/L 220) CALCIUM (test code = 2209) 9.7 MG/DL PROTEIN, TOTAL (test code = 7.7 G/DL 2228) ALBUMIN (test code = 2201) 4.4 G/DL CALC GLOBULIN (test code = 3.3 G/DL 2240) CALC A/G RATIO (test code = 1.3 RATIO 2234) BILIRUBIN, TOTAL (test code = <0.2 MG/DL 2206) ALKALINE PHOSPHATASE (test 92 U/L code = 2204) AST (test code = 2218) 19 U/L ALT (test code = 2219) 14 U/L COMPREHENSIVE METABOLIC PANEL [ADDED]2018-04-26 00:00:00 Test Item Value Reference Range Interpretation Comments GLUCOSE (test code = 2217) 76 MG/DL BUN (test code = 2208) 10 MG/DL CREATININE (test code = 2214) 0.54 MG/DL eGFR AMER. (test code 150 ML/MIN/1.73 = 60798) eGFR NON- AMER. (test 129 ML/MIN/1.73 code = 53341) CALC BUN/CREAT (test code = 19 RATIO 2235) SODIUM (test code = 2231) 141 MEQ/L POTASSIUM (test code = 2228) 4.1 MEQ/L CHLORIDE (test code = 2215) 103 MEQ/L CARBON DIOXIDE (test code = 25 MEQ/L 6) CALCIUM (test code = 2209) 9.7 MG/DL PROTEIN, TOTAL (test code = 7.7 G/DL 2228) ALBUMIN (test code = 2201) 4.4 G/DL CALC GLOBULIN (test code = 3.3 G/DL 2240) CALC A/G RATIO (test code = 1.3 RATIO 2234) BILIRUBIN, TOTAL (test code = <0.2 MG/DL 2206) ALKALINE PHOSPHATASE (test 92 U/L code = 2204) AST (test code = 2218) 19 U/L ALT (test code = 2219) 14 U/L CHLAMYDIA, AMPLIFIED, [id number] 00:00:00 Test Item Value Reference Range Interpretation Comments CHLAMYDIA, TMA (test code TEST NOT PERFORMED = 00553) CHLAMYDIA, AMPLIFIED, [id number] 00:00:00 Test Item Value Reference Range Interpretation Comments CHLAMYDIA, TMA (test code TEST NOT PERFORMED = 92967) GC, AMPLIFIED, [id number] 00:00:00 Test Item Value Reference Range Interpretation Comments GONORRHEA, TMA (test code TEST NOT PERFORMED = 20906) GC, AMPLIFIED, [id number] 00:00:00 Test Item Value Reference Range Interpretation Comments GONORRHEA, TMA (test code TEST NOT PERFORMED = 20404) ACUTE HEPATITIS [id number] 00:00:00 Test Item Value Reference Range Interpretation Comments HEPATITIS A IgM (test code = NON-REACTIVE 39241) HEPATITIS B CORE IgM (test code NON-REACTIVE = 4644) HEPATITIS B SURF AG (test code = NON-REACTIVE 2739) HEPATITIS C ANTIBODY (test code REACTIVE = 4675) INTERPRETATION HEPATITIS A: (NOTE) (test code = 2552) INTERPRETATION HEPATITIS B: (NOTE) (test code = 80200) INTERPRETATION HEPATITIS C: (NOTE) (test code = 07372) ACUTE HEPATITIS [id number] 00:00:00 Test Item Value Reference Range Interpretation Comments HEPATITIS A IgM (test code = NON-REACTIVE 20480) HEPATITIS B CORE IgM (test code NON-REACTIVE = 4644) HEPATITIS B SURF AG (test code = NON-REACTIVE 2739) HEPATITIS C ANTIBODY (test code REACTIVE = 4675) INTERPRETATION HEPATITIS A: (NOTE) (test code = 2552) INTERPRETATION HEPATITIS B: (NOTE) (test code = 87313) INTERPRETATION HEPATITIS C: (NOTE) (test code = 71413) COMPREHENSIVE METABOLIC [id number] 00:00:00 Test Item Value Reference Range Interpretation Comments GLUCOSE (test code = 2217) 79 MG/DL BUN (test code = 2208) 12 MG/DL CREATININE (test code = 2214) 0.65 MG/DL eGFR AMER. (test code 141 ML/MIN/1.73 = 84330) eGFR NON- AMER. (test 122 ML/MIN/1.73 code = 25088) CALC BUN/CREAT (test code = 18 RATIO 2235) SODIUM (test code = 2231) 143 MEQ/L POTASSIUM (test code = 2228) 4.1 MEQ/L CHLORIDE (test code = 2215) 104 MEQ/L CARBON DIOXIDE (test code = 24 MEQ/L 2206) CALCIUM (test code = 2209) 9.3 MG/DL PROTEIN, TOTAL (test code = 7.0 G/DL 222) ALBUMIN (test code = 2201) 4.1 G/DL CALC GLOBULIN (test code = 2.9 G/DL 2240) CALC A/G RATIO (test code = 1.4 RATIO 2234) BILIRUBIN, TOTAL (test code = <0.2 MG/DL 2206) ALKALINE PHOSPHATASE (test 86 U/L code = 2204) AST (test code = 2218) 14 U/L ALT (test code = 2219) 10 U/L COMPREHENSIVE METABOLIC [id number] 00:00:00 Test Item Value Reference Range Interpretation Comments GLUCOSE (test code = 2217) 79 MG/DL BUN (test code = 2208) 12 MG/DL CREATININE (test code = 2214) 0.65 MG/DL eGFR AMER. (test code 141 ML/MIN/1.73 = 87995) eGFR NON- AMER. (test 122 ML/MIN/1.73 code = 45503) CALC BUN/CREAT (test code = 18 RATIO 2235) SODIUM (test code = 2231) 143 MEQ/L POTASSIUM (test code = 2228) 4.1 MEQ/L CHLORIDE (test code = 2215) 104 MEQ/L CARBON DIOXIDE (test code = 24 MEQ/L 2205) CALCIUM (test code = 2209) 9.3 MG/DL PROTEIN, TOTAL (test code = 7.0 G/DL 2228) ALBUMIN (test code = 2201) 4.1 G/DL CALC GLOBULIN (test code = 2.9 G/DL 2240) CALC A/G RATIO (test code = 1.4 RATIO 2234) BILIRUBIN, TOTAL (test code = <0.2 MG/DL 2206) ALKALINE PHOSPHATASE (test 86 U/L code = 2204) AST (test code = 2218) 14 U/L ALT (test code = 2219) 10 U/L CBC W/AUTO [id number] 00:00:00 Test Item Value Reference Range Interpretation Comments WBC (test code = 1001) 8.4 K/UL RBC (test code = 1002) 4.38 M/UL HEMOGLOBIN (test code = 1003) 10.9 G/DL HEMATOCRIT (test code = 1004) 35.1 % MCV (test code = 1005) 80.1 fL MCH (test code = 1006) 24.9 PG MCHC (test code = 1007) 31.1 G/DL RDW (test code = 1038) 15.6 % NEUTROPHILS (test code = 1008) 58.9 % LYMPHOCYTES (test code = 1010) 30.6 % MONOCYTES (test code = 1011) 7.6 % EOSINOPHILS (test code = 1012) 2.5 % BASOPHILS (test code = 1013) 0.4 % PLATELET COUNT (test code = 1015) 320 K/UL CBC W/AUTO [id number] 00:00:00 Test Item Value Reference Range Interpretation Comments WBC (test code = 1001) 8.4 K/UL RBC (test code = 1002) 4.38 M/UL HEMOGLOBIN (test code = 1003) 10.9 G/DL HEMATOCRIT (test code = 1004) 35.1 % MCV (test code = 1005) 80.1 fL MCH (test code = 1006) 24.9 PG MCHC (test code = 1007) 31.1 G/DL RDW (test code = 1038) 15.6 % NEUTROPHILS (test code = 1008) 58.9 % LYMPHOCYTES (test code = 1010) 30.6 % MONOCYTES (test code = 1011) 7.6 % EOSINOPHILS (test code = 1012) 2.5 % BASOPHILS (test code = 1013) 0.4 % PLATELET COUNT (test code = 1015) 320 K/UL CBC W/AUTO [id number] 00:00:00 Test Item Value Reference Range Interpretation Comments WBC (test code = 1001) 8.4 K/UL RBC (test code = 1002) 4.38 M/UL HEMOGLOBIN (test code = 1003) 10.9 G/DL HEMATOCRIT (test code = 1004) 35.1 % MCV (test code = 1005) 80.1 fL MCH (test code = 1006) 24.9 PG MCHC (test code = 1007) 31.1 G/DL RDW (test code = 1038) 15.6 % NEUTROPHILS (test code = 1008) 58.9 % LYMPHOCYTES (test code = 1010) 30.6 % MONOCYTES (test code = 1011) 7.6 % EOSINOPHILS (test code = 1012) 2.5 % BASOPHILS (test code = 1013) 0.4 % PLATELET COUNT (test code = 1015) 320 K/UL HEMOGLOBIN [id number] 00:00:00 Test Item Value Reference Range Interpretation Comments HEMOGLOBIN A1c (test code = 34650) 5.5 % HEMOGLOBIN [id number] 00:00:00 Test Item Value Reference Range Interpretation Comments HEMOGLOBIN A1c (test code = 02588) 5.5 % HEMOGLOBIN [id number] 00:00:00 Test Item Value Reference Range Interpretation Comments HEMOGLOBIN A1c (test code = 33086) 5.5 % HIV AB/AG COMBO RFLX [id number] 00:00:00 Test Item Value Reference Range Interpretation Comments HIV 1/2 4TH GEN, RFLX CONF (test NON-REACTIVE code = 3514) HIV AB/AG COMBO RFLX [id number] 00:00:00 Test Item Value Reference Range Interpretation Comments HIV 1/2 4TH GEN, RFLX CONF (test NON-REACTIVE code = 3514) [id number] 00:00:00 Test Item Value Reference Range Interpretation Comments RPR RESULT (test code = NON-REACTIVE 3501) RPR TITER (test code = 3500) NOT INDIC. TITER [id number] 00:00:00 Test Item Value Reference Range Interpretation Comments RPR RESULT (test code = NON-REACTIVE 3501) RPR TITER (test code = 3500) NOT INDIC. TITER [id number] 00:00:00 Test Item Value Reference Range Interpretation Comments RPR RESULT (test code = NON-REACTIVE 3501) RPR TITER (test code = 3500) NOT INDIC. TITER [id number] 00:00:00 Test Item Value Reference Range Interpretation Comments TSH, THIRD GENERATION (test code 2.780 UIU/ML = 2821) [id number] 00:00:00 Test Item Value Reference Range Interpretation Comments TSH, THIRD GENERATION (test code 2.780 UIU/ML = 2821) [id number] 00:00:00 Test Item Value Reference Range Interpretation Comments TSH, THIRD GENERATION (test code 2.780 UIU/ML = 2821) PAP TEST, THINPREP, [id number] 00:00:00 Test Item Value Reference Range Interpretation Comments SOURCE: (test code = A) Cervical/Endocervical 8001) SLIDES: (test code = 1 8011) LMP: (test code = NOT GIVEN 8021) SPECIMEN ADEQUACY: (NOTE) (test code = 73518) INTERPRETATION: (test NO EPITHELIAL code = 49276) ABNORMALITY SEE BELOW COLLEGE COACH: Sarita Davila (test code = 8101) Cruz,CT(ASCP)IAC LOCATION: (test code (NOTE) = 04540) CPT: (test code = (NOTE) 8140) PAP TEST, THINPREP, [id number] 00:00:00 Test Item Value Reference Range Interpretation Comments SOURCE: (test code = A) Cervical/Endocervical 8001) SLIDES: (test code = 1 8011) LMP: (test code = NOT GIVEN 8021) SPECIMEN ADEQUACY: (NOTE) (test code = 11477) INTERPRETATION: (test NO EPITHELIAL code = 05161) ABNORMALITY SEE BELOW COLLEGE COACH: Sarita Davila (test code = 8101) Cruz,CT(ASCP)IAC LOCATION: (test code (NOTE) = 00954) CPT: (test code = (NOTE) 8140) GC AND CHLAMYDIA AMPLIFIED, [id number] 00:00:00 Test Item Value Reference Range Interpretation Comments GONORRHEA, TMA (test code = 57489) NEGATIVE CHLAMYDIA, TMA (test code = 43517) NEGATIVE GC AND CHLAMYDIA AMPLIFIED, [id number] 00:00:00 Test Item Value Reference Range Interpretation Comments GONORRHEA, TMA (test code = 00296) NEGATIVE CHLAMYDIA, TMA (test code = 88387) NEGATIVE
--- NOTE | 2022-05-29 17:26 | EDPHYS ---
Physician Documentation [facility] Name: Thomas Nguyen Age: 32 yrs Sex: Female : 1990 Arrival Date: 05/29/2022 Time: 15:14 Bed 9 Private MD: ED Physician Иван Salazar HPI: 05/29 15:45 This 32 yrs old Female presents to ER via Ambulatory with complaints of Flu cp Symptoms. 15:45 The patient or guardian reports cough, that is intermittent, flu symptoms, fever, body cp aches. 15:45 Onset: The symptoms/episode began/occurred 2 day(s) ago. Associated signs and symptoms: cp Pertinent positives: diarrhea, nausea, sore throat, Pertinent negatives: chest pain, vomiting. Severity of symptoms: in the emergency department the symptoms are unchanged despite home interventions. 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 - Social history:: Smoking status: Patient reports the use of cigarette tobacco products, smokes one-half pack cigarettes per day. ROS: 15:50 Constitutional: Positive for body aches, Negative for fever, poor PO intake. cp 15:50 Eyes: Negative for injury, pain, redness, and discharge. cp 15:50 ENT: Positive for ear pain, sore throat, Negative for drainage from ear(s), difficulty swallowing, difficulty handling secretions. 15:50 Respiratory: Positive for cough, Negative for shortness of breath, wheezing. 15:50 Abdomen/GI: Positive for nausea, diarrhea, Negative for abdominal pain, vomiting, constipation. 15:50 Skin: Negative for rash. 15:50 Neuro: Positive for headache, Negative for altered mental status, weakness. 15:50 All other systems are negative. Exam: 15:55 Constitutional: The patient appears in no acute distress, alert, awake, non-toxic, well cp developed, well nourished, obese. 15:55 Head/Face: Normocephalic, atraumatic. cp 15:55 Eyes: Periorbital structures: appear normal, Conjunctiva: normal, no exudate, no injection, Sclera: no appreciated abnormality, Lids and lashes: appear normal, bilaterally. 15:55 ENT: External ear(s): are unremarkable, Ear canal(s): are normal, clear, TM's: dullness, bilaterally, Nose: is normal, Mouth: Lips: moist, Oral mucosa: moist, Posterior pharynx: Airway: no evidence of obstruction, patent, Tonsils: no enlargement, no exudate, swelling, is not appreciated, erythema, that is mild, exudate, is not appreciated. 15:55 Neck: ROM/movement: is normal, is supple, without pain, no range of motions limitations, no meningismus, Lymph nodes: no appreciated lymphadenopathy. 15:55 Chest/axilla: Inspection: normal. 15:55 Cardiovascular: Rate: normal, Rhythm: regular. 15:55 Respiratory: the patient does not display signs of respiratory distress, Respirations: normal, no use of accessory muscles, no retractions, labored breathing, is not present, Breath sounds: are clear throughout, no decreased breath sounds, no stridor, no wheezing. 15:55 Abdomen/GI: Inspection: abdomen appears normal, Palpation: abdomen is soft and non-tender, in all quadrants. 15:55 Skin: no rash present. Vital Signs: 15:24 BP 138 / 91; Pulse 99; Resp 20; Temp 98.7; Pulse Ox 100% ; Weight 108.86 kg; Height 5 kb3 ft. 7 in. (170.18 cm); Pain 7/10; 16:30 BP 138 / 92; Pulse 95; Resp 20; Pulse Ox 100% on R/A; kr3 17:54 BP 135 / 89; Pulse 95; Resp 20; Pulse Ox 99% on R/A; kr3 15:24 Body Mass Index 37.59 (108.86 kg, 170.18 cm) kb3 MDM: 15:36 Patient medically screened. cp 17:25 Data reviewed: vital signs, nurses notes, lab test result(s). cp 17:25 Counseling: I had a detailed discussion with the patient and/or guardian regarding: the cp historical points, exam findings, and any diagnostic results supporting the discharge/admit diagnosis, lab results. ED course: VSS. Patient appears non-toxic and no signs of respiratory distress. Will discharge to home for continued monitoring. 05/29 15:42 Order name: Strep; Complete Time: 16:46 cp 05/29 15:42 Order name: COVID-19 SARS RT PCR (Document "Date of Onset" if Symptomatic); Complete cp Time: 17:19 05/29 15:42 Order name: Flu; Complete Time: 16:46 cp 05/29 16:46 Interpretation: Abnormal: FLUA FLU A ----- POSITIVE for FLU A protein antigen. cp 05/29 16:44 Order name: Throat Culture EDMS Administered Medications: 17:47 Drug: Tamiflu (oseltamivir) 75 mg Route: PO; kr3 17:56 Follow up: Response: No adverse reaction kr3 17:47 Drug: Zofran (Ondansetron) 4 mg Route: PO; kr3 17:56 Follow up: Response: No adverse reaction kr3 Disposition Summary: 05/29/22 17:26 Discharge Ordered Location: Home cp Problem: new cp Symptoms: have improved cp Condition: Stable cp Diagnosis - Influenza due to identified novel influenza A virus with other manifestations cp Followup: cp - With: Private Physician - When: 2 - 3 days - Reason: Worsening of condition Discharge Instructions: - Discharge Summary Sheet cp - Influenza, Adult cp - Form - Excuse from Work, School, or Physical Activity cp Forms: - Medication Reconciliation Form cp - Thank You Letter cp - Antibiotic Education cp - Prescription Opioid Use cp - Work release form kr3 Prescriptions: - Bromfed DM 2-30-10 mg/5 mL Oral syrup - take 10 milliliter by ORAL route every 4-6 hours; 180 milliliter; Refills: 0, cp Product Selection Permitted - Zofran 4 mg Oral Tablet - take 1 tablet by ORAL route every 12 hours As needed; 20 tablet; Refills: 0, cp Product Selection Permitted - Tamiflu 75 mg Oral Capsule - take 1 tablet by ORAL route every 12 hours for 5 days; 10 tablet; Refills: 0, cp Product Selection Permitted Signatures: Dispatcher [employer] EDVT Hernán Delarosa PA PA cp Loraine Hodges RN RN kr3 Tia Morales RN RN kb3
--- NOTE | 2022-05-29 17:26 | ER ---
Nurse's Notes [facility] Name: Thomas Nguyen Age: 32 yrs Sex: Female : 1990 Arrival Date: 05/29/2022 Time: 15:14 Bed 9 Private MD: Diagnosis: Influenza due to identified novel influenza A virus with other manifestations Presentation: 05/29 15:24 Chief complaint: Patient states: Pt reports body aches, cough, runny nose, sneezing, kb3 diarrhea x2 days. Coronavirus screen: Vaccine status: Patient reports receiving the 1st dose of the Covid vaccine. Client denies travel out of the [place] in the last 14 days. Ebola Screen: Patient negative for fever greater than or equal to 101.5 degrees Fahrenheit, and additional compatible Ebola Virus Disease symptoms Patient denies exposure to infectious person. Patient denies travel to an Ebola-affected area in the 21 days before illness onset. Initial Sepsis Screen: Does the patient meet any 2 criteria? No. Patient's initial sepsis screen is negative. Does the patient have a suspected source of infection? No. Patient's initial sepsis screen is negative. Risk Assessment: Do you want to hurt yourself or someone else? Patient reports no desire to harm self or others. Onset of symptoms was May 27, 2022. 15:24 Method Of Arrival: Ambulatory kb3 15:24 Acuity: CRISTY 4 kb3 Triage Assessment: 15:27 General: Appears in no apparent distress. Behavior is calm, cooperative. Pain: kb3 Complains of pain in chest Pain does not radiate. Pain currently is 6 out of 10 on a pain scale. Quality of pain is described as burning, Aggravated by Cough and deep breathing. 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 - Social history:: Smoking status: Patient reports the use of cigarette tobacco products, smokes one-half pack cigarettes per day. Screenin:55 Abuse screen: Denies threats or abuse. Nutritional screening: No deficits noted. kr3 Tuberculosis screening: No symptoms or risk factors identified. Fall Risk None identified. Assessment: 15:30 General: Appears in no apparent distress. uncomfortable, Behavior is calm, cooperative, kr3 appropriate for age. Respiratory: Airway Respiratory effort is even, unlabored, Respiratory pattern is regular, symmetrical. Vital Signs: 15:24 BP 138 / 91; Pulse 99; Resp 20; Temp 98.7; Pulse Ox 100% ; Weight 108.86 kg; Height 5 kb3 ft. 7 in. (170.18 cm); Pain 7/10; 16:30 BP 138 / 92; Pulse 95; Resp 20; Pulse Ox 100% on R/A; kr3 17:54 BP 135 / 89; Pulse 95; Resp 20; Pulse Ox 99% on R/A; kr3 15:24 Body Mass Index 37.59 (108.86 kg, 170.18 cm) kb3 ED Course: 15:14 Patient arrived in ED. as 15:15 Hernán Delarosa PA is PHCP. cp 15:15 Иван Salazar MD is Attending Physician. cp 15:27 Triage completed. kb3 15:27 Arm band placed on left wrist. kb3 15:35 Bed in low position. Call light in reach. Side rails up X 1. kr3 15:41 Loraine Hodges, RN is Primary Nurse. kr3 16:00 Flu Sent. kr3 16:00 COVID-19 SARS RT PCR (Document "Date of Onset" if Symptomatic) Sent. kr3 16:00 Strep Sent. kr3 17:55 No provider procedures requiring assistance completed. Patient did not have IV access kr3 during this emergency room visit. Administered Medications: 17:47 Drug: Tamiflu (oseltamivir) 75 mg Route: PO; kr3 17:56 Follow up: Response: No adverse reaction kr3 17:47 Drug: Zofran (Ondansetron) 4 mg Route: PO; kr3 17:56 Follow up: Response: No adverse reaction kr3 Medication: 17:56 VIS not applicable for this client. kr3 Outcome: 17:26 Discharge ordered by . cp 17:55 Discharged to home ambulatory. kr3 17:55 Condition: stable 17:55 Discharge instructions given to patient, Instructed on discharge instructions, follow up and referral plans. medication usage, Demonstrated understanding of instructions, follow-up care, medications, Prescriptions given X 3. 17:57 Patient left the ED. kr3 Signatures: Adalgisa Swartz Corey, PA PA cp Reid, Kelley, RN RN kr3 Tia Morales RN RN kb3
[2022-05-29] MEDS ORDERED: ONDANSETRON 4 MG (ODT) TAB ONE (17:41)
[2022-05-29] MEDS ORDERED: OSELTAMIVIR 75 MG CAP ONE (17:42)
[2022-05-29 18:12] VITALS: TEMP 98.7
[2022-05-29 18:14] VITALS: BP 135/89; O2SAT 99
== END 2022-05-29 17:57 | disposition home or self-care (01) ==
LOC: ER 15:09
DX: J10.1 Influenza due to other identified influenza virus with other respiratory manifestations (principal); F17.210 Nicotine dependence, cigarettes, uncomplicated; Z20.822 Contact with and (suspected) exposure to COVID-19
CPT/HCPCS: 87070; 87081; 87804 ×2; 99283; U0003; Q0162

== ENCOUNTER 2023-03-30 14:19 | Emergency (ER) | payer OTHER, SELFPAY ==
--- OUTSIDE RECORDS SUMMARY | 2023-03-30 14:23 | XMS REPORT | Continuity of Care Document ---
:1990 Author Organization [facility] t Address [address] Jonathan. [address] [place] [address] Care Team Providers Name Role Phone Pcp, Patient Does Not Have A Primary Care Physician [id number] Doctor Unassigned, [place] Attending Clinician Unavailable UNKNOWN, ATTENDING Attending Clinician Unavailable Estela Herrmann Attending Clinician Payers Payer Name Policy Type Policy Number Effective Date Expiration Date [facility] [id number] 2015 00:00:00 Problems Condition Condition Condition Status Onset Resolution Last Treating Co mments Source Name Details Category Date Date Treatment Clinician Date No past No past Problem Resolve 2017-12-10 M emoria history of history of d 12:28:40 l procedure procedure Herm robert (context-d (context-d ependent ependent category) category) Resolved Problem 12/10/2017 [facility] Morbid Morbid Problem Active 2017-12-10 [facility] oria obesity obesity 12:28:40 l (disorder) (disorder) He rmann Active Problem 12/10/2017 Medical Group Allergies, Adverse Reactions, Alerts Allergy Allergy Status Severity Reaction(s) Onset Inactive Treating Comm ents Source Name Type Date Date Clinician NO KNOWN Drug Active [facility] ALLERGIE Class [facility] Social History Social Habit Start Date Stop Date Quantity Comments Source Social History 2017-09-03 2017-09-03 Zee jimenez 16:29:04 16:29:04 Sex Assigned At [birth year] [facility] 00:00:00 00:00:00 Medical Branch Smoking Status Start Date Stop Date Source Tobacco smoking consumption [facility] unknown Branch Medications Ordered Filled Start Stop Current Ordering Indication Dosage Frequency Signature Comments Components Source Medication Medication Date Date Medication? Clinician (SIG) Name Name MIRTAZAPINE 2-1 No 15MG TAB 0-01 00:00: 00 Dose 2-0 No Unknown 4-01 00:00: 00 Wellbutrin 2-0 No 1mg XL 150 mg 4-01 24 hr 00:00: tablet, 00 extended release Intuniv ER 2-0 No 1mg 3 mg 4-01 tablet,exte 00:00: nded 00 release trazodone 2-0 No 51mg 50 mg 4-01 tablet 00:00: 00 Dose 2-0 No Unknown 3-17 00:00: 00 Intuniv ER 2-0 No 1mg 3 mg 3-17 tablet,exte 00:00: [...] 1mg mg tablet 1-28 00:00: 00 Dose 2-0 No Unknown -28 00:00: 00 Intuniv ER 2-0 No 1mg 2 mg 1-28 tablet,exte 00:00: nded 00 release Intuniv ER 2-0 No 1mg 2 mg 1-28 tablet,exte 00:00: nded 00 release amoxicillin 2019-0 No 1mg 500 mg 3-19 tablet 00:00: 00 amoxicillin 2019-0 No 1mg 500 mg 3-19 tablet 00:00: 00 Cipro 250 2019-0 No 1mg mg tablet 2-04 00:00: 00 metronidazo 2018-0 No 1mg le 500 mg 7-12 tablet 00:00: 00 bupropion 2018-0 No 1mg HCl SR 150 7-08 mg 00:00: tablet,12 00 hr sustained-r elease metronidazo 2017- No 1mg le 500 mg 0-01 tablet 00:00: 00 amoxicillin 2017- No 1mg 875 0-01 mg-potassiu 00:00: m 00 clavulanate 125 mg tablet nitrofurant 2017- No 1mg oin 9-21 monohydrate 00:00: /macrocryst 00 als 100 mg capsule cephalexin 2017- No 1mg 500 mg 9-18 capsule 00:00: [...] /min Respiratory Rate 2018-04-16 10:12:00 16.00 /min Diastolic (mm Hg) 2017-09-03 16:28:00 [facility] larisa Rueda Heart Rate 2017-09-03 16:28:00 [facility] BMI Calculated 2017-09-03 16:28:00 [facility] al [place] Height 2017-09-03 16:28:00 170.18 cm [facility] Weight 2017-09-03 16:28:00 [facility] Systolic (mm Hg) 2017-09-03 16:28:00 Melchorkalin Rueda BP Systolic 2016-01-18 15:31:00 123 mm[Hg] BP [...] 74.00 /min Respiratory Rate 2016-01-17 11:13:00 Procedures Procedure Date / Time Performed Performing Clinician [facility] александр REFERRAL- 2022-08-08 06:01:00 Doctor Unassigned, No Seema lang [facility] REQUEST/RESPONSE Name Medical Branch Plan of Care Planned Activity Planned Date Details Comments Source Goal Plan of Care Note [code = 54750-9] Goal Plan of Care Note [code = 90842-5] Goal Plan of Care Note [code = 03593-1] Goal Plan of Care Note [code = 32402-4] Goal Plan of Care Note [code = 44379-7] Goal Plan of Care Note [code = 66314-4] Goal Plan of Care Note [code = 05649-6] Goal Plan of Care Note [code = 92601-6] Goal Plan of Care Note [code = 23448-7] Goal Plan of Care Note [code = 13063-9] Goal Plan of Care Note [code = 11625-7] Goal Plan of Care Note [code = 90382-2] Goal Plan of Care Note [code = 31609-0] Goal Plan of Care Note [code = 83625-3] Goal Plan of Care Note [code = 29122-1] Goal Plan of Care Note [code = 61378-6] Goal Plan of Care Note [code = 85159-5] Goal Plan of Care Note [code = 46426-9] Goal Plan of Care Note [code = 69495-0] Goal Plan of Care Note [code = 01007-1] Goal Plan of Care Note [code = 20746-3] Goal Plan of Care Note [code = 29698-6] Goal Plan of Care Note [code = 44851-0] Goal Plan of Care Note [code = 69122-1] Goal Plan of Care Note [code = 06752-7] Goal Plan of Care Note [code = 83952-1] Goal Plan of Care Note [code = 62219-1] Goal Plan of Care Note [code = 98607-3] Goal Plan of Care Note [code = 18246-8] Goal Plan of Care Note [code = 28631-6] Goal Plan of Care Note [code = 34687-8] Goal Plan of Care Note [code = 75750-3] Goal Plan of Care Note [code = 18710-3] Goal Plan of Care Note [code = 76165-5] Encounters Start End Encounter Admission Attending Care Care Encounter Source Date/Time Date/Time Type Type Clinicians Facility Department ID 2022-08-08 2022-08-08 Orders Doctor DAIANA [id number] 00:00:00 00:00:00 Only Unassigned, ANGELA [id number] [place] [facility] [id number] Last as [id number] [address] 2022-04-29 2022-04-29 Outpatient [id number] 00:00:00 00:00:00 Visit [id number] 2020-07-07 2020-07-07 Outpatient R GLENDY, [facility] [id number] 15:20:00 15:20:00 ATTENDING ity [facility] 2017-11-22 2017-11-22 Outpatient MHIE MHIE [id number] Mem[address] 13:45:00 13:45:00 01 melody Rueda 2017-11-22 2017-11-22 Outpatient MHIE MHIE [id number] Memoria 13:45:00 13:45:00 01 melody Rueda 2017-09-03 2017-09-04 Outpatient nullFlavo [facility] 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 5 [id number] Memoria 16:30:00 05:59:59 r Young Harris 00 melody Rueda 2017-09-03 2017-09-04 Outpatient nullFlavo MG 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 5 [id number] Memoria 16:30:00 05:59:59 r Young Harris 00 melody Rueda 2017-09-03 2017-09-03 Outpatient Montez [facility] [id number] 10:30:00 23:59:59 Estela 00 Rafa 2017-09-03 2017-09-03 Outpatient MHIE MHIE [id number] Memoria 10:30:00 10:30:00 00 melody Rueda Results Test Description Test Time Test Comments Results Result Comments Source SARS-CoV-2 (COVID-19), RT-PCR/TMA 2021-10-22 08:08:41 Test Item Value Reference Range Interpretation Comme nts SARS-CoV-2 INTERPRETATION NEGATIVE SEE NOTE S ARS-CoV-2 RNA NOT (test code = 84464) DETECTED Negative results do not preclude SARS-C [...] ORDER CODE 3509. SOURCE (test code = 22077) NOT SPECIFIED Note: Methodology is Patrick Juan Real-Time RT-PC R. The expected result or refer ence range is NEGATIVE (Not D etected). For more information reg arding COVID-19 testing to incl ude clinicalinforma tion, methodology detail, intende d use, FDA authorization a ndrecommended fact sheets for skip ents or healthcare providers, see NewTest Announcement: S ARS-CoV-2 (COVID-19) by N AAT at URL below (note,fact shee ts are provided by method given in report:https:// www.[employer]/cl inicians/client -communications/ Alternatively, see downloadable PDF fact sheet at:https://www. [employer]/COVID- 19-RT-PCR UNLES S OTHERWISE INDICATED, ALL TESTING PERFORMED ATCLINICAL PATH [facility], [place] [address] [place] [address] 4 BENEFITS CLERK: BRAD ARGUETA M.D. CLIA NUMBER [id number] CAP ACCREDITATION N O. [id number] SARS-CoV-2 (COVID-19) by RT-PCR (HIGH RISK)2021-10-22 00:00:00 Test Item Value Reference Range Interpretation Comments SARS-CoV-2 INTERPRETATION (test NEGATIVE code = 03146) SOURCE (test code = 05036) NOT SPECIFIED SARS-CoV-2 (COVID-19) by RT-PCR (HIGH RISK)2021-10-22 00:00:00 Test Item Value Reference Range Interpretation Comments SARS-CoV-2 INTERPRETATION (test NEGATIVE code = 60978) SOURCE (test code = 70026) NOT SPECIFIED CULTURE, [id number] 00:00:00 Test Item Value Reference Range Interpretation Comments CULTURE, URINE (test SPECIMEN NUMBER: code = 18534) [id number] CULTURE, [id number] 00:00:00 Test Item Value Reference Range Interpretation Comments CULTURE, URINE (test SPECIMEN NUMBER: code = 96027) [id number] CBC W/AUTO [id number] 00:00:00 Test Item Value Reference Range Interpretation [...] code = 1015) 352 K/UL CBC W/AUTO [id number] 00:00:00 Test Item Value Reference Range Interpretation [...] code = 1015) 352 K/UL CBC W/AUTO [id number] 00:00:00 Test Item Value Reference Range Interpretation [...] COUNT (test code = 1015) 352 K/UL [id number] 00:00:00 Test Item Value Reference Range Interpretation Comments TSH, THIRD GENERATION (test code 2.460 UIU/ML = 2821) [id number] 00:00:00 Test Item Value Reference Range Interpretation Comments TSH, THIRD GENERATION (test code 2.460 UIU/ML = 2821) [id number] 00:00:00 Test Item Value Reference Range Interpretation Comments TSH, THIRD GENERATION (test code 2.460 UIU/ML = 2821) VAGINAL PATHOGENS DNA [id number] 00:00:00 Test Item Value Reference Range Interpretation Comments VALERIA SPECIES (test code = ) NEGATIVE G. VAGINALIS (test code = ) POSITIVE T. VAGINALIS (test code = ) NEGATIVE VAGINAL PATHOGENS DNA [id number] 00:00:00 Test Item Value Reference Range Interpretation Comments VALERIA SPECIES (test code = ) NEGATIVE G. VAGINALIS (test code = ) POSITIVE T. VAGINALIS (test code = ) NEGATIVE HCV RNA, PCR [id number] 00:00:00 Test Item Value Reference Range Interpretation Comments HCV RNA, PCR QUANT (test NOT DETEC IU/ML code = 4571) HCV VIRAL LOG (test code = NOT DETEC LOGIU/ML 99566) HCV RNA, PCR [id number] 00:00:00 Test Item Value Reference Range Interpretation Comments HCV RNA, PCR QUANT (test NOT DETEC IU/ML code = 4571) HCV VIRAL LOG (test code = NOT DETEC LOGIU/ML 50589) HCV RNA, PCR [id number] 00:00:00 Test Item Value Reference Range Interpretation Comments HCV RNA, PCR QUANT (test NOT DETEC IU/ML code = 4571) HCV VIRAL LOG (test code = NOT DETEC LOGIU/ML 25208) CULTURE, [id number] 00:00:00 Test Item Value Reference Range Interpretation Comments CULTURE, URINE (test SPECIMEN NUMBER: code = 04929) [id number] CULTURE, [id number] 00:00:00 Test Item Value Reference Range Interpretation Comments CULTURE, URINE (test SPECIMEN NUMBER: code = 62406) [id number] LIPID [id number] 00:00:00 Test Item Value Reference Range Interpretation Comments CHOLESTEROL (test code = 2210) 175 MG/DL TRIGLYCERIDES (test code = 2232) 254 MG/DL HDL CHOLESTEROL (test code = 2220) 42 MG/DL CALC LDL CHOL (test code = 2237) 82 MG/DL RISK RATIO LDL/HDL (test code = 1.96 RATIO 2238) LIPID [id number] 00:00:00 Test Item Value Reference Range Interpretation Comments CHOLESTEROL (test code = 2210) 175 MG/DL TRIGLYCERIDES (test code = 2232) 254 MG/DL HDL CHOLESTEROL (test code = 2220) 42 MG/DL CALC LDL CHOL (test code = 2237) 82 MG/DL RISK RATIO LDL/HDL (test code = 1.96 RATIO 2238) VAGINAL PATHOGENS DNA [id number] 00:00:00 Test Item Value Reference Range Interpretation Comments VALERIA SPECIES (test code = ) NEGATIVE G. VAGINALIS (test code = ) POSITIVE T. VAGINALIS (test code = ) NEGATIVE VAGINAL PATHOGENS DNA [id number] 00:00:00 Test Item Value Reference Range Interpretation Comments VALERIA SPECIES (test code = ) NEGATIVE G. VAGINALIS (test code = ) POSITIVE T. VAGINALIS (test code = ) NEGATIVE COMPREHENSIVE METABOLIC PANEL [ADDED]2018-04-26 00:00:00 Test Item Value Reference Range Interpretation Comments GLUCOSE (test code = 2217) 76 MG/DL BUN (test code = 2208) 10 MG/DL CREATININE (test code = 2214) 0.54 MG/DL eGFR AMER. (test code 150 ML/MIN/1.73 = 96768) eGFR NON- AMER. (test 129 ML/MIN/1.73 code = 98783) CALC BUN/CREAT (test code = 19 RATIO 2235) SODIUM (test code = 2231) 141 MEQ/L POTASSIUM (test code = 2228) 4.1 MEQ/L CHLORIDE (test code = 2215) 103 MEQ/L CARBON DIOXIDE (test code = 25 MEQ/L 2205) CALCIUM (test code = 2209) 9.7 MG/DL [...] eGFR AMER. (test code 150 ML/MIN/1.73 = 47598) eGFR NON- AMER. (test 129 ML/MIN/1.73 code = 07282) CALC BUN/CREAT (test code = 19 RATIO 2235) SODIUM (test code = 2231) 141 MEQ/L POTASSIUM (test code = 2228) 4.1 MEQ/L CHLORIDE (test code = 2215) 103 MEQ/L CARBON DIOXIDE (test code = 25 MEQ/L 2205) CALCIUM (test code = 2209) 9.7 MG/DL PROTEIN, TOTAL (test code = 7.7 G/DL 2228) ALBUMIN (test code = 2201) 4.4 G/DL CALC GLOBULIN (test code = 3.3 G/DL 2239) CALC A/G RATIO (test code = 1.3 RATIO 2233) BILIRUBIN, TOTAL (test code = <0.2 MG/DL 2206) ALKALINE PHOSPHATASE (test 92 U/L code = 2204) AST (test code = 2218) 19 U/L ALT (test code = 2219) 14 U/L CHLAMYDIA, AMPLIFIED, [id number] 00:00:00 Test Item Value Reference Range Interpretation Comments CHLAMYDIA, TMA (test code TEST NOT PERFORMED = 08542) CHLAMYDIA, AMPLIFIED, [id number] 00:00:00 Test Item Value Reference Range Interpretation Comments CHLAMYDIA, TMA (test code TEST NOT PERFORMED = 89890) GC, AMPLIFIED, [id number] 00:00:00 Test Item Value Reference Range Interpretation Comments GONORRHEA, TMA (test code TEST NOT PERFORMED = 86351) GC, AMPLIFIED, [id number] 00:00:00 Test Item Value Reference Range Interpretation Comments GONORRHEA, TMA (test code TEST NOT PERFORMED = 59508) ACUTE HEPATITIS [id number] 00:00:00 Test Item Value Reference Range Interpretation Comments HEPATITIS A IgM (test code = NON-REACTIVE 99632) HEPATITIS B CORE IgM (test code NON-REACTIVE = 4644) HEPATITIS B SURF AG (test code = NON-REACTIVE 2739) HEPATITIS C ANTIBODY (test code REACTIVE = 4675) INTERPRETATION HEPATITIS A: (NOTE) (test code = 2552) INTERPRETATION HEPATITIS B: (NOTE) (test code = 22389) INTERPRETATION HEPATITIS C: (NOTE) (test code = 09526) ACUTE HEPATITIS [id number] 00:00:00 Test Item Value Reference Range Interpretation Comments HEPATITIS A IgM (test code = NON-REACTIVE 45628) HEPATITIS B CORE IgM (test code NON-REACTIVE = 4644) HEPATITIS B SURF AG (test code = NON-REACTIVE 2739) HEPATITIS C ANTIBODY (test code REACTIVE = 4675) INTERPRETATION HEPATITIS A: (NOTE) (test code = 2552) INTERPRETATION HEPATITIS B: (NOTE) (test code = 02700) INTERPRETATION HEPATITIS C: (NOTE) (test code = 00364) COMPREHENSIVE METABOLIC [id number] 00:00:00 Test Item Value Reference Range Interpretation Comments GLUCOSE (test code = 2217) 79 MG/DL BUN (test code = 2208) 12 MG/DL CREATININE (test code = 2214) 0.65 MG/DL eGFR AMER. (test code 141 ML/MIN/1.73 = 51880) eGFR NON- AMER. (test 122 ML/MIN/1.73 code = 26497) CALC BUN/CREAT (test code = 18 RATIO [...] CALC GLOBULIN (test code = 2.9 G/DL 0) CALC A/G RATIO (test code = 1.4 RATIO 4) BILIRUBIN, TOTAL (test code = <0.2 MG/DL 2206) ALKALINE PHOSPHATASE (test 86 U/L code = 2204) AST (test code = 2218) 14 U/L ALT (test code = 2219) 10 U/L COMPREHENSIVE METABOLIC [id number] 00:00:00 Test Item Value Reference Range Interpretation Comments GLUCOSE (test code = 2217) 79 MG/DL BUN (test code = 2208) 12 MG/DL CREATININE (test code = 2214) 0.65 MG/DL eGFR AMER. (test code 141 ML/MIN/1.73 = 50721) eGFR NON- AMER. (test 122 ML/MIN/1.73 code = 55229) CALC BUN/CREAT (test code = 18 RATIO [...] CALC GLOBULIN (test code = 2.9 G/DL 0) CALC A/G RATIO (test code = 1.4 RATIO 2234) BILIRUBIN, TOTAL (test code = <0.2 MG/DL 2206) ALKALINE PHOSPHATASE (test 86 U/L code = 2204) AST (test code = 2218) 14 U/L ALT (test code = 2219) 10 U/L CBC W/AUTO [id number] 00:00:00 Test Item Value Reference Range Interpretation [...] code = 1015) 320 K/UL CBC W/AUTO [id number] 00:00:00 Test Item Value Reference Range Interpretation [...] code = 1015) 320 K/UL CBC W/AUTO [id number] 00:00:00 Test Item Value Reference Range Interpretation [...] (test code = 1015) 320 K/UL HEMOGLOBIN [id number] 00:00:00 Test Item Value Reference Range Interpretation Comments HEMOGLOBIN A1c (test code = 83014) 5.5 % HEMOGLOBIN [id number] 00:00:00 Test Item Value Reference Range Interpretation Comments HEMOGLOBIN A1c (test code = 25366) 5.5 % HEMOGLOBIN [id number] 00:00:00 Test Item Value Reference Range Interpretation Comments HEMOGLOBIN A1c (test code = 02843) 5.5 % HIV AB/AG COMBO RFLX [id number] 00:00:00 Test Item Value Reference Range Interpretation Comments HIV 1/2 4TH GEN, RFLX CONF (test NON-REACTIVE code = 3514) HIV AB/AG COMBO RFLX [id number] 00:00:00 Test Item Value Reference Range Interpretation Comments HIV 1/2 4TH GEN, RFLX CONF (test NON-REACTIVE code = 3514) [id number] 00:00:00 Test Item Value Reference Range Interpretation Comments RPR RESULT (test code = NON-REACTIVE 3501) RPR TITER (test code = 3500) NOT INDIC. TITER [id number] 00:00:00 Test Item Value Reference Range Interpretation Comments RPR RESULT (test code = NON-REACTIVE 3501) RPR TITER (test code = 3500) NOT INDIC. TITER [id number] 00:00:00 Test Item Value Reference Range Interpretation Comments RPR RESULT (test code = NON-REACTIVE 3501) RPR TITER (test code = 3500) NOT INDIC. TITER [id number] 00:00:00 Test Item Value Reference Range Interpretation Comments TSH, THIRD GENERATION (test code 2.780 UIU/ML = 2821) [id number] 00:00:00 Test Item Value Reference Range Interpretation Comments TSH, THIRD GENERATION (test code 2.780 UIU/ML = 2821) [id number] 00:00:00 Test Item Value Reference Range Interpretation Comments TSH, THIRD GENERATION (test code 2.780 UIU/ML = 2821) PAP TEST, THINPREP, [id number] 00:00:00 Test Item Value Reference Range Interpretation Comments SOURCE: (test code = A) Cervical/Endocervical 8001) SLIDES: (test code = 1 8011) LMP: (test code = NOT GIVEN 8021) SPECIMEN ADEQUACY: (NOTE) (test code = 09917) INTERPRETATION: (test NO EPITHELIAL code = 57007) ABNORMALITY SEE BELOW PHONE MANAGER: Sarita Davila (test code = 8101) Cruz,CT(ASCP)IAC LOCATION: (test code (NOTE) = 77370) CPT: (test code = (NOTE) 8140) PAP TEST, THINPREP, [id number] 00:00:00 Test Item Value Reference Range Interpretation Comments SOURCE: (test code = A) Cervical/Endocervical 8001) SLIDES: (test code = 1 8011) LMP: (test code = NOT GIVEN 8021) SPECIMEN ADEQUACY: (NOTE) (test code = 62254) INTERPRETATION: (test NO EPITHELIAL code = 61106) ABNORMALITY SEE BELOW PHONE MANAGER: Sarita Davila (test code = 8101) Cruz,CT(ASCP)IAC LOCATION: (test code (NOTE) = 41353) CPT: (test code = (NOTE) 8140) GC AND CHLAMYDIA AMPLIFIED, [id number] 00:00:00 Test Item Value Reference Range Interpretation Comments GONORRHEA, TMA (test code = 63144) NEGATIVE CHLAMYDIA, TMA (test code = 73362) NEGATIVE GC AND CHLAMYDIA AMPLIFIED, [id number] 00:00:00 Test Item Value Reference Range Interpretation Comments GONORRHEA, TMA (test code = 91416) NEGATIVE CHLAMYDIA, TMA (test code = 59695) NEGATIVE
[2023-03-30 15:35] LABS: Absolute Lymphocytes (CBC) 2.9 K/uL (0.7-4.9); Hematocrit 32.5 % (36.0-45.0); Lymphocytes % 21.4 % (15.3-44.8); MCV 72.5 fL (80-100); MPV 7.6 fL (7.6-11.3); Platelets 312 thou/uL (152-406); RBC Red Blood Cell Count 4.49 M/uL (3.86-4.86)
[2023-03-30 15:38] LABS: Specific Gravity 1.029 (1.005-1.030)
[2023-03-30 15:41] LABS: Specific Gravity 1.028 (1.005-1.030); Urine Bacteria None Seen /HPF (<20); Urine Bilirubin NEGATIVE (Negative); Urine Blood Trace (Negative); Urine Clarity Extremely Turbid (Clear); Urine Color Yellow (Yellow); Urine Glucose NEGATIVE (Negative); Urine Mucus 4+ /HPF (None Seen); Urine Protein 1+ (Negative); Urine RBC >50 /HPF (None Seen); Urine Urobilinogen Normal (Normal)
[2023-03-30 15:47] LABS: Barbiturates NEGATIVE (NEGATIVE); Benzodiazepines NEGATIVE (NEGATIVE); Cocaine NEGATIVE (NEGATIVE); METHAMPHETAM POSITIVE (NEGATIVE); Methadone NEGATIVE (NEGATIVE); Opiates NEGATIVE (NEGATIVE); Phencyclidine NEGATIVE (NEGATIVE); THC Cannibis NEGATIVE (NEGATIVE)
[2023-03-30 15:58] LABS: ALT/SGPT 18 U/L (13-56); Albumin 3.6 g/dL (3.4-5.0); Alkaline Phosphatase 98 U/L (45-117); BUN Blood Urea Nitrogen 14 mg/dL (7-18); Bicarbonate 25 mEq/L (21-32); Bilirubin Total 0.4 mg/dL (0.2-1.0); Glomerular Filtration Rate 103 ml/min (=/>90); Glucose Level 98 mg/dL (74-106); Protein, Total 7.6 g/dL (6.4-8.2); Sodium Level 140 mEq/L (136-145)
[2023-03-30 16:02] LABS: AST/SGOT 36 U/L (15-37); Bilirubin Direct < 0.1 mg/dL (0-0.2); Bilirubin Indirect, Calculated ND mg/dL (0.2-0.8); Potassium 3.6 mEq/L (3.5-5.1)
[2023-03-30] MEDS ORDERED: ZIPRASIDONE MESYLA 20 MG/VIAL IM ONE (16:22)
[2023-03-30] MEDS ORDERED: WATER FOR INJ,STERILE 10 ML ONE (16:22)
--- NOTE | 2023-03-30 16:38 | ER ---
Nurse's Notes [facility] Name: Thomas Nguyen Age: 32 yrs Sex: Female : 1990 Arrival Date: 03/30/2023 Time: 14:19 Bed External Waiting Private MD: Diagnosis: Adverse effect of amphetamines Presentation: 03/30 14:50 Chief complaint: EMS states: PATIENT SCREAMING AND CRYING AT [place] AND PD WERE CALLED db AND WERE ON SCENE. PT WAS NOT MAKING SENSE. DENIES SI AND HI. ADMITS TO SMOKING MARIJUANA. COOPERATIVE UPON ARRIVAL. Coronavirus screen: Client denies travel out of the [place] in the last 14 days. At this time, the client does not indicate any symptoms associated with coronavirus-19. Ebola Screen: Patient negative for fever greater than or equal to 101.5 degrees Fahrenheit, and additional compatible Ebola Virus Disease symptoms Patient denies exposure to infectious person. Patient denies travel to an Ebola-affected area in the 21 days before illness onset. No symptoms or risks identified at this time. Initial Sepsis Screen: Does the patient meet any 2 criteria? No. Patient's initial sepsis screen is negative. Does the patient have a suspected source of infection? No. Patient's initial sepsis screen is negative. Risk Assessment: Do you want to hurt yourself or someone else? Patient reports no desire to harm self or others. Onset of symptoms was March 30, 2023. 14:50 Method Of Arrival: EMS: [facility] db 14:50 Acuity: CRISTY 2 db Triage Assessment: 14:58 General: Appears in no apparent distress. comfortable, Behavior is calm, cooperative. db Pain: Denies pain. Historical: - PMHx: 14:58 ADD/ADHD; db - PSHx: 14:58 "tubal ligation"; db - Immunization history:: Adult Immunizations unknown. - Social history:: Smoking status: Patient denies any tobacco usage or history of. Screenin:30 [facility] ED Fall Risk Assessment (Adult) History of falling in the last 3 months, db including since admission No falls in past 3 months (0 pts) Confusion or Disorientation No (0 pts) Intoxicated or Sedated No (0 pts) Impaired Gait No (0 pts) Mobility Assist Device Used No (0 pt) Score/Fall Risk Level 0 - 2 = Low Risk Oriented to surroundings, Maintained a safe environment. Abuse screen: Denies threats or abuse. Denies injuries from another. Nutritional screening: No deficits noted. Tuberculosis screening: No symptoms or risk factors identified. Assessment: 14:59 Reassessment: Patient appears in no apparent distress at this time. Patient and/or db family updated on plan of care and expected duration. Pain level reassessed. Patient is alert, oriented x 3, equal unlabored respirations, skin warm/dry/pink. PATIENT IS CALM AND SPEAKING WITH STAFF CALMLY AT THIS TIME. 15:50 Reassessment: PATIENT BECOMING INCREASINGLY AGITATED. NOW YELLING AT STAFF. STAFF db ATTEMPTING TO RECOLLECT BLUE TOP. 16:00 Reassessment: PATIENT AGITATED UNABLE TO OBTAIN REPEAT VITALS. db 16:18 Reassessment: PATIENT SEEN WALKING OUT OF ROOM AND YELLED "I'M LEAVING. I'M NOT CRAZY. db YA'LL ARE CRAZY'. CHARGE NURSE AND PROVIDER NOTIFIED. Vital Signs: 14:50 BP 143 / 62; Pulse 111; Resp 16; Temp 98(O); Pulse Ox 98% ; db Bryant Coma Score: 15:30 Eye Response: spontaneous(4). Motor Response: obeys commands(6). Verbal Response: db oriented(5). Total: 15. ED Course: 14:55 Patient arrived in ED. db 14:58 Triage completed. db 14:58 Hernán Delarosa PA is PHCP. cp 14:58 Catrachito Ordaz MD is Attending Physician. cp 14:58 Arm band placed on Patient placed in an exam room. db 15:07 Shanda Felix, RN is Primary Nurse. db 15:28 Acetaminophen Sent. bc6 15:28 Basic Metabolic Panel Sent. bc6 15:28 CBC with Diff Sent. bc6 15:28 ETOH Level Sent. bc6 15:28 Hepatic Function Sent. bc6 15:28 PT-INR Sent. bc6 15:28 Test, Urine Sent. bc6 15:28 Ptt, Activated Sent. bc6 15:28 Salicylate Sent. bc6 15:28 Urinalysis w/ reflexes Sent. bc6 15:28 Urine Drug Screen Sent. bc6 15:30 Patient has correct armband on for positive identification. Bed in low position. Call db light in reach. Side rails up X 1. 15:30 Missed attempt(s): 22 gauge in left antecubital area. bc6 15:52 EKG done, by ED staff. aw1 16:18 Jordon Ambriz MD is Attending Physician. cp 16:26 Catrachito Ordaz MD is Attending Physician. cp Administered Medications: No medications were administered Outcome: 16:38 Discharge ordered by MD. cp 16:44 Patient left the ED. hb Signatures: Hernán Delarosa PA PA cp Sia Lucas, VANIA RN Shanda Felix RN RN Fabiola Boyd bc6 Maryam Lambert aw1
[2023-03-30 16:39] LABS: Anisocytosis 1+; Blood Morphology Comment NOTED (NOT SEEN); Platelet Estimate ADEQ; Platelets, Giant FEW
--- NOTE | 2023-03-30 16:39 | EDPHYS ---
Physician Documentation [facility] Name: Thomas Nguyen Age: 32 yrs Sex: Female : 1990 Arrival Date: 03/30/2023 Time: 14:19 Bed External Waiting Private MD: ED Physician Catrachito Ordaz HPI: 03/30 15:00 This 32 yrs old Female presents to ER via EMS with complaints of Psych Problem.cp 15:00 The patient presents to the emergency department with erratic behavior. cp 15:00 Onset: The symptoms/episode began/occurred today. Past psychiatric history: Psychiatric cp medications include: unknown. Associated signs and symptoms: Pertinent positives; paranoia, Pertinent negatives: abdominal pain, chest pain, fever, homicidal ideation, suicide ideation. Historical: - PMHx: 14:58 ADD/ADHD; db - PSHx: 14:58 "tubal ligation"; db - Immunization history:: Adult Immunizations unknown. - Social history:: Smoking status: Patient denies any tobacco usage or history of. ROS: 15:05 Constitutional: Negative for body aches, chills, fever, poor PO intake. cp 15:05 Eyes: Negative for injury, pain, redness, and discharge. cp 15:05 ENT: Negative for drainage from ear(s), ear pain, sore throat, difficulty swallowing, difficulty handling secretions. 15:05 Cardiovascular: Negative for chest pain. 15:05 Respiratory: Negative for cough, shortness of breath, wheezing. 15:05 Abdomen/GI: Negative for abdominal pain, vomiting, diarrhea, constipation. 15:05 Neuro: Negative for headache. 15:05 Psych: Negative for auditory hallucinations, visual hallucinations, homicidal ideation, suicide gesture, suicidal ideation. 15:05 All other systems are negative. Exam: 15:10 Head/Face: Normocephalic, atraumatic. cp 15:10 Constitutional: The patient appears in no acute distress, alert, awake, non-diaphoretic, non-toxic, well developed, well nourished. 15:10 Eyes: Periorbital structures: appear normal, Pupils: constricted, bilaterally, cp Extraocular movements: intact throughout, Conjunctiva: normal, no exudate, no injection, Sclera: no appreciated abnormality, Lids and lashes: appear normal, bilaterally. 15:10 ENT: External ear(s): are unremarkable, Nose: is normal, Mouth: Lips: moist, Oral mucosa: pink and intact, moist, Posterior pharynx: is normal, airway is patent, no erythema, no exudate. 15:10 Neck: ROM/movement: is normal, is supple, without pain, no range of motions limitations, no meningismus. 15:10 Chest/axilla: Inspection: normal. 15:10 Cardiovascular: Rate: tachycardic, Rhythm: regular. 15:10 Respiratory: the patient does not display signs of respiratory distress, Respirations: normal, no use of accessory muscles, no retractions, labored breathing, is not present, Breath sounds: are clear throughout, no decreased breath sounds, no stridor. 15:10 Abdomen/GI: Inspection: abdomen appears normal, Palpation: abdomen is soft and non-tender, in all quadrants. 15:10 Back: pain, is absent, ROM is painless. 15:10 Neuro: Orientation: to person, place, situation, Mentation: able to follow commands, Motor: moves all fours, strength is normal, Gait: is steady. 15:10 Psych: Behavior/mood is cooperative, Affect is animated, Patient has no thoughts/intents to harm self or others. Delusions/hallucinations are not present. Vital Signs: 14:50 BP 143 / 62; Pulse 111; Resp 16; Temp 98(O); Pulse Ox 98% ; db Bryant Coma Score: 15:30 Eye Response: spontaneous(4). Motor Response: obeys commands(6). Verbal Response: db oriented(5). Total: 15. MDM: 14:58 Patient medically screened. cp 15:15 Differential diagnosis: drug withdrawal. acute psychotic break, depression, psychosis cp secondary to non-compliance. 16:38 Data reviewed: vital signs, nurses notes, lab test result(s). cp 16:38 Consideration of Admission/Observation Escalation of care including cp admission/observation considered. 03/30 14:58 Order name: Acetaminophen; Complete Time: 16:09 03/30 14:58 Order name: Basic Metabolic Panel; Complete Time: 16:09 03/30 16:37 Interpretation: Normal except: CL 110. 03/30 14:58 Order name: CBC with Diff 03/30 15:46 Interpretation: Normal except: WBC 13.30; HGB 10.6; HCT 32.5; MCV 72.5; MCH 23.6; RDW cp 17.6; NEUT A 9.3. 03/30 14:58 Order name: ETOH Level; Complete Time: 16:09 03/30 14:58 Order name: Hepatic Function; Complete Time: 16:09 03/30 14:58 Order name: Test, Urine; Complete Time: 15:46 03/30 15:46 Interpretation: Reviewed. 03/30 14:58 Order name: Salicylate; Complete Time: 16:26 03/30 14:58 Order name: Urinalysis w/ reflexes; Complete Time: 15:46 03/30 15:46 Interpretation: Normal except: [facility] Extremely Turbid; UBLD Trace; UPROT 1+; UESTR 500; cp UWBC 20-50; URBC >50; SQEPI >50; MUCUS 4+; BYST Few. 03/30 14:58 Order name: Urine Drug Screen; Complete Time: 16:09 03/30 16:16 Interpretation: Normal except: METHAMPHETAMINE POSITIVE. 03/30 15:55 Order name: Manual Differential EDMS 03/30 14:58 Order name: EKG; Complete Time: 14:59 03/30 14:58 Order name: EKG - Nurse/Tech; Complete Time: 15:53 03/30 14:58 Order name: IV Saline Lock 03/30 14:58 Order name: Labs collected and sent; Complete Time: 15:28 03/30 14:58 Order name: Suicide Screening ([place]); Complete Time: 15:28 cp Administered Medications: No medications were administered Disposition: 17:11 Co-signature as Attending Physician, Catrachito Ordaz MD I reviewed the patient's care rn provided by the Advanced Practice Provider and agree with the diagnosis and treatment plan. Disposition Summary: 03/30/23 16:38 Discharge Ordered Location: Home cp Problem: new cp Symptoms: are unchanged cp Condition: Stable cp Diagnosis - Adverse effect of amphetamines cp Followup: cp - With: Emergency Department - When: As needed - Reason: Worsening of condition Discharge Instructions: - Discharge Summary Sheet cp - Methamphetamines Use Disorder cp Forms: - Medication Reconciliation Form cp - Thank You Letter cp - Antibiotic Education cp - Prescription Opioid Use cp - Patient Portal Instructions cp - Leadership Thank You Letter cp Signatures: Dispatcher [employer] Catrachito Fischer MD MD rn Hernán Delarosa PA PA cp Shanda Felix, RN RN db Corrections: (The following items were deleted from the chart) 16:39 16:38 Adverse effect of amphetamines, initial encounter cp cp 16:41 16:39 Schizophrenia, unspecified cp cp 03/31 09:57 09:54 Constitutional: The patient appears in no acute distress, alert, awake, cp non-diaphoretic, non-toxic, well developed, well nourished, cp :57 09:54 Head/Face: Normocephalic, atraumatic. cp cp
[2023-03-30 16:54] VITALS: BP 143/62; TEMP 98; O2SAT 98
--- NOTE | 2023-03-31 14:38 | EKG ---
Test Date: 2023-03-30 Test Time: 15:48:51 [employer] Equipment [employer] Manager: JULY MEASUREMENT RESULTS: Intervals: Rate: 90 [place]: 188 QRSD: 82 QT: 364 QTc: 445 [place]: P: 60 [place]: 188 QRS: 57 T: 26 INTERPRETIVE STATEMENTS: Normal sinus rhythm Normal ECG No previous ECG available for comparison Electronically Signed On 03-31-23 14:36:21 CDT by Marquez Gomez
== END 2023-03-30 16:44 | disposition home or self-care (01) ==
LOC: ER 14:19
DX: R46.2 Strange and inexplicable behavior (principal); T43.625A Adverse effect of amphetamines, initial encounter
CPT/HCPCS: 36415; 80048; 80076; 80143; 80179; 80307; 81001; 81025; 82077; 85025; 93005; 99283; J3486